=== PATIENT | female | born 1990 | race Two or more races ===

== ENCOUNTER 2024-07-01 17:18 | Emergency (ER) | payer MEDICAID, SELFPAY | END 2024-07-05 22:56 | disposition left against medical advice (07) | LOC: SERX 18:50 | PROVIDERS: Emergency Provider Emergency Medicine | DX: Z53.21 Procedure and treatment not carried out due to patient leaving prior to being seen by health care provider (principal) ==

== ENCOUNTER 2024-07-01 18:30 | Observation (INO) | payer MEDICAID, SELFPAY ==
[2024-07-01] VITALS (8 sets, daily range): BP systolic 99–159; BP diastolic 56–114; PULSE 92–126; RESP 16; TEMP 37.3; O2SAT 98; BMI 34.9
--- NOTE | 2024-07-01 18:56 | XR_ITS ---
Examination: Complete OB ultrasound greater than 14 weeks Date and time of exam: July 01, 2024 2006 hrs. Indications: Pelvic pain nausea beginning 2 days ago Findings: Viable intrauterine single fetus with single amniotic sac presentation cephalic Cardiac motion 133 BPM Placenta anterior grade 1 Umbilical cord insertion seen Amniotic fluid index 9.7 cm Cervix 5.1 cm Ovaries obscured by the uterus. Composite estimated gestational age based on BPD, head circumference, abdominal circumference, femur length is 33 weeks 1 day Estimated weight 2110 g. Survey of intracranial anatomy, spinal anatomy, abdominal anatomy, four-chamber heart performed with no abnormalities identified. Impression: Viable intrauterine gestation cephalic presentation Estimated gestational age 33 weeks 1 day.
[2024-07-01] MEDS: SODIUM CHLORIDE 0.9% 1000 ML 1,000 ML 999 ML IV (19:30)
[2024-07-01 19:58] LABS: Collection Type, Urine Clean Catch
[2024-07-01 19:59] LABS: Basophils % (Auto) 0 % (0-2.5); Eosinophils % (Auto) 0 % (0-10); Hemoglobin 11.3 g/dL (12.0-16.0); Immature Granulocytes % (Auto) 0 % (0-0); Immature Granulocytes Auto 0.02 Thou/mm3 (0.00-0.00); Lymphocytes # (Auto) 0.4 Thou/mm3 (1.0-4.8); Lymphocytes % (Auto) 5 % (10-50); Mean Corpuscular HGB Conc 35.3 g/dl (31.0-37.0); Mean Corpuscular Volume 91 fL (80-100); Monocytes # (Auto) 0.3 Thou/mm3 (0.0-0.8); Monocytes % (Auto) 4 % (0-12); Neutrophils # (Auto) 7.2 Thou/mm3 (1.8-7.7); Neutrophils % (Auto) 91 % (37-80); Nucleated Red Blood Cell % 0 /100 WBC (0); Platelet Count 207 Thou/mm3 (140-440); RDW Standard Deviation 41.1 fL (36.4-46.3); Red Blood Count 3.53 Miln/mm3 (4.00-5.20); White Blood Count 7.9 Thou/mm3 (3.6-11.0)
[2024-07-01 20:04] LABS: Bilirubin,Urine Negative (Negative); Blood,Urine Negative (Negative); Clarity,Urine Clear (Clear/Hazy); Color,Urine Yellow (Lt Yel-Yel); Glucose, Urine Negative (Negative); Ketones,Urine 3+ (Negative); Leukocyte Esterase,Urine Negative (Negative); Nitrite,Urine Negative (Negative); Protein,Urine Trace (Neg - Trace); RBC,Urine 3 /hpf (0-3); Specific Gravity,Urine 1.018 (1.001-1.035); Squamous Epithelial Cell,Urine 4 /hpf (0-5); Urobilinogen,Urine Negative mg/dL (0.0-1.0); WBC,Urine 1 /hpf (0-5)
[2024-07-01 20:17] LABS: Alanine Aminotransferase 12 U/L (10-49); Albumin, Serum 3.8 gm/dL (3.5-5.0); Albumin/Globulin Ratio 1.4 (1.2-2.2); Alkaline Phosphatase 119 U/L (46-116); Anion Gap 8 (7-16); Aspartate Amino Transferase 17 U/L (0-34); BUN/Creatinine Ratio 13 Ratio (12-20); Bilirubin,Total 0.9 mg/dL (0.3-1.2); Blood Urea Nitrogen 5 mg/dL (9-23); Calcium 9.1 mg/dL (8.3-10.6); Calcium (Corrected) 9.3 mg/dL (8.5-10.1); Carbon Dioxide 23.8 mMol/L (20.0-31.0); Chloride 104 mMol/L (98-107); Creatinine (Component) 0.4 mg/dL (0.6-1.3); Estimated Creatinine Clearance 190.6 mL/min (>60); Globulin 2.8 gm/dL (2.3-3.5); Glucose 81 mg/dL (74-106); Osmolality,Calculated 268 (275-295); Potassium 3.2 mMol/L (3.4-5.1); Sodium 136 mMol/L (136-145); Total Protein 6.6 gm/dL (5.7-8.2); eGFR > 60 See Note
[2024-07-01 20:19] LABS: Fibrinogen 446 mg/dL (175-375); Partial Thromboplastin Time 24.8 Seconds (22.0-36.0); Prothrombin Time 10.7 Seconds (9.0-12.2)
[2024-07-01] MEDS: ACETAMINOPHEN IVPB 1,000 MG/100 ML VIAL 250 MG IV (20:27)
[2024-07-01] MEDS: POTASSIUM CHLORIDE 20 mEq TABCR PO (22:38)
== END 2024-07-01 22:45 | disposition home or self-care (01) ==
PROVIDERS: Admitting Provider Student in an Organized Health Care Education/Training Program; Visit Provider Student in an Organized Health Care Education/Training Program
DX: O26.893 Other specified pregnancy related conditions, third trimester (principal); R25.2 Cramp and spasm; Z3A.33 33 weeks gestation of pregnancy
CPT/HCPCS: 36415; 59025; 59899; 76805; 80053; 81001; 85025; 85384; 85610; 85730; G0378; J0131; J7030; A9270

== ENCOUNTER 2024-08-09 05:34 | Inpatient (IN) | payer MEDICAID, SELFPAY ==
--- NOTE | 2024-08-04 11:51 | ESHP_ITS ---
RE: PAIGE PEARCE : 1990 DATE OF ADMISSION: 08/09/2024 HISTORY OF PRESENT ILLNESS: This is a 34-year-old 3, para 2-0-0-2 with due date of 08/16/2024 with intrauterine at 39 weeks on 08/09/2024, who is admitted for repeat delivery. The patient's care was complicated by chlamydia cervicitis, which was treated on 05/28/2024 and test of cure was negative. The patient has a history of syphilis. She received three weekly Bicillin injections at the [facility] in 04/2023. Her most recent RPR on 02/09/2024 was 1 to 2 and a repeat RPR on 06/06/2024 was nonreactive. An additional repeat chlamydia test on 07/24/2024 was negative. ALLERGIES: NO KNOWN DRUG ALLERGIES. MEDICATIONS: multivitamin one p.o. daily. PAST MEDICAL HISTORY: Syphilis, preeclampsia, placental abruption, delivery, chlamydia, migraine headaches. SOCIAL HISTORY: She denies any alcohol, drug use, or smoking. FAMILY HISTORY: Mother and maternal grandmother have migraine headaches. OBSTETRIC HISTORY: In 2013, 40-week normal vaginal delivery, 7 pounds 8 ounce male, home delivery. In 06/09/2023, 34-week delivery complicated by placental abruption and preeclampsia. PAST SURGICAL HISTORY: delivery in 2022. REVIEW OF SYSTEMS: She denies any chest pain, palpitations, cough, fever, or shortness of breath or lower extremity pain. She denies any headache, change in vision or right upper quadrant pain. PHYSICAL EXAMINATION: VITAL SIGNS: Blood pressure 122/64, heart rate 88, respirations 18, temperature is 98.2. HEENT: Oropharynx and sclerae are clear. LUNGS: Clear to auscultation bilaterally. HEART: Regular rate and rhythm. ABDOMEN: Old Pfannenstiel scar noted, gravid term size consistent with estimated weight, 7.5 pounds. PELVIC: Deferred. EXTREMITIES: Nontender. SKIN: No gross rashes or lesions. NEUROLOGIC: No focal deficit. ASSESSMENT AND PLAN: Intrauterine at 39 weeks on 08/09. Previous delivery, elects repeat delivery. Informed consent was obtained. The patient made aware of the risks, complications, alternatives, and benefits of the proposed procedure and she agrees. DT: 09:49:40 TT: 11:42:00 Ref: [id number] - TID: [id number] MTDD
[2024-08-08 15:29] LABS: Basophils # (Auto) 0.1 Thou/mm3 (0.0-0.2); Basophils % (Auto) 1 % (0-2.5); Eosinophils # (Auto) 0.2 Thou/mm3 (0.0-0.5); Eosinophils % (Auto) 2 % (0-10); Hemoglobin 12.2 g/dL (12.0-16.0); Immature Granulocytes % (Auto) 0 % (0-0); Immature Granulocytes Auto 0.02 Thou/mm3 (0.00-0.00); Lymphocytes # (Auto) 0.5 Thou/mm3 (1.0-4.8); Lymphocytes % (Auto) 7 % (10-50); Mean Corpuscular HGB Conc 34.9 g/dl (31.0-37.0); Mean Corpuscular Hemoglobin 31.7 pg (25.0-35.0); Mean Corpuscular Volume 91 fL (80-100); Monocytes # (Auto) 0.6 Thou/mm3 (0.0-0.8); Monocytes % (Auto) 7 % (0-12); Neutrophils # (Auto) 6.7 Thou/mm3 (1.8-7.7); Neutrophils % (Auto) 83 % (37-80); Nucleated Red Blood Cell % 0 /100 WBC (0); Platelet Count 240 Thou/mm3 (140-440); Red Blood Count 3.85 Miln/mm3 (4.00-5.20)
[2024-08-08 15:45] LABS: Alanine Aminotransferase 11 U/L (10-49); Albumin/Globulin Ratio 1.4 (1.2-2.2); Alkaline Phosphatase 164 U/L (46-116); Anion Gap 7 (7-16); Aspartate Amino Transferase 14 U/L (0-34); BUN/Creatinine Ratio 14 Ratio (12-20); Bilirubin,Total 0.9 mg/dL (0.3-1.2); Blood Urea Nitrogen 7 mg/dL (9-23); Calcium 9.2 mg/dL (8.3-10.6); Calcium (Corrected) 9.2 mg/dL (8.5-10.1); Carbon Dioxide 25.9 mMol/L (20.0-31.0); Chloride 102 mMol/L (98-107); Creatinine (Component) 0.5 mg/dL (0.6-1.3); Globulin 2.8 gm/dL (2.3-3.5); Glucose 72 mg/dL (74-106); Osmolality,Calculated 267 (275-295); Potassium 3.7 mMol/L (3.4-5.1); Sodium 135 mMol/L (136-145); Total Protein 6.8 gm/dL (5.7-8.2); eGFR > 60 See Note
[2024-08-08 16:06] LABS: Syphilis Reactive (Nonreactive)
[2024-08-08 16:07] LABS: INR 0.9 (0.9-1.3); MHATP/TP-PA* See Sep Rpt; Partial Thromboplastin Time 25.3 Seconds (22.0-36.0); Prothrombin Time 10.1 Seconds (9.0-12.2)
[2024-08-09] VITALS (55 sets, daily range): BP systolic 0–125; BP diastolic 0–73; PULSE 60–111; RESP 14–20; TEMP 36.4–36.7; O2SAT 82–100; BMI 35.1
[2024-08-09 06:16] LABS: Basophils % (Auto) 0 % (0-2.5); Eosinophils # (Auto) 0.2 Thou/mm3 (0.0-0.5); Eosinophils % (Auto) 3 % (0-10); Hematocrit 34.6 % (36.0-46.0); Hemoglobin 12.4 g/dL (12.0-16.0); Immature Granulocytes % (Auto) 0 % (0-0); Immature Granulocytes Auto 0.01 Thou/mm3 (0.00-0.00); Lymphocytes # (Auto) 0.5 Thou/mm3 (1.0-4.8); Lymphocytes % (Auto) 8 % (10-50); Mean Corpuscular HGB Conc 35.8 g/dl (31.0-37.0); Mean Corpuscular Hemoglobin 31.9 pg (25.0-35.0); Mean Corpuscular Volume 89 fL (80-100); Monocytes # (Auto) 0.4 Thou/mm3 (0.0-0.8); Monocytes % (Auto) 6 % (0-12); Neutrophils # (Auto) 5.6 Thou/mm3 (1.8-7.7); Neutrophils % (Auto) 84 % (37-80); Nucleated Red Blood Cell % 0 /100 WBC (0); Platelet Count 242 Thou/mm3 (140-440); Red Blood Count 3.89 Miln/mm3 (4.00-5.20); White Blood Count 6.7 Thou/mm3 (3.6-11.0)
[2024-08-09] MEDS: RINGERS LACTATED 1000 ML 1,000 ML 500 ML IV ×2 (06:38→07:05)
[2024-08-09 06:55] LABS: Syphilis Reactive (Nonreactive)
[2024-08-09] MEDS: ceFAZolin/D5W 2 GM IV 2 GM/100 ML BAG IV (08:58)
[2024-08-09] MEDS: FAMOTIDINE INJ 10 MG/ML VIAL 2 ML 20 MG IV (08:59)
[2024-08-09] MEDS: CITRIC ACID/SODIUM CITR 15 ML UDC (BICITRA) 30 ML PO (08:59)
--- NOTE | 2024-08-09 10:37 | PD.LDDS ---
DS: Providers Provider Date of admission: 08/09/24 05:34 Primary care physician: Alicia Rivera PA-C Admitting Provider: Wilton Parker MD Attending Provider on Admission: Wilton Parker MD Attending Provider on DC: Wilton Parker MD Discharging Provider: Wilton Parker MD DS: Diagnosis Discharge Diagnosis (1) delivery delivered: Status: Acute (2) Endometriosis: Status: Acute Problem List Completed Was Problem List Reviewed/Reconciled?: Yes Summary/Hosp Course Peripartum Data Procedures: Procedures Operation Date: 08/09/24 10:45 Actual Procedure Side Surgeon p in OB Not Applicable Wilton Parker MD Time Spent with Patient Time attestation: Total time spent providing and/or coordinating discharge services: Exam Vital Signs Temp Pulse Resp BP Pulse Ox 98.1 F 88 17 109/66 96 08/09/24 05:55 08/09/24 07:27 08/09/24 05:55 08/09/24 07:27 08/09/24 08:57 Discharge Plan Plan Patient Disposition: HOME (Self Care) Patient condition on transfer: Stable Prescriptions/Referrals Prescriptions/Med Rec: New hydrocodone-acetaminophen 5-325 mg tablet 1 tab PO Q6H MDD 4 PRN (Reason: pain) Qty: 20 0RF Continued PNV [id number] fumarate-FA [] 28 mg iron- 800 mcg Tablet 1 tab PO QDAY Referrals: Alicia Rivera PA-C [Primary Care Provider] - Patient/Caregiver Discharge Instructions Discharge Activity: activity as tolerated Other Discharge Activity Instructions:: Follow up office 1 weeks. Education Materials: C Section Dc Print Language: Telugu Stand Alone Forms: Taylor Award Info., Patient Portal Info Letter Discharge Order Discharge Orders: Discharge (Routine); Ordered 08/12/24 Ordered By: Wilton Parker Planned Discharge Date 08/11/24
--- NOTE | 2024-08-09 10:38 | PD.LDDELS ---
Data (Christensen) Data Hx Section: No : 3 Para: 2 Term: 2 : 1 : 0 Delivery Data (Christensen) Labor Data ROM Date: 08/09/24 ROM Time: 09:57 Rupture Type: AROM Amniotic Fluid: Clear Delivery Data EDC: 08/16/24 EDC calculated by:: LMP/early US confirmation Labor Onset Stage 1 Date: 08/09/24 Labor Onset Stage 1 Time: 09:57 Labor Onset Stage 2 Date: 08/09/24 Labor Onset Stage 2 Time: 09:57 Delivery Date: 08/09/24 Delivery Time: 09:57 Gestational age (weeks): 39 Gestational age (days): 0 Placenta Delivery Date: 08/09/24 Placenta Delivery Time: 09:58 Delivered by: Wilton Parker Delivery nurse: Shelli Gómez Other staff at delivery: Nursery Nurse Other staff at delivery: Biological Photographer Other staff at delivery: RT Other staff at delivery: Scrub Other staff at delivery: Lani Pedro Other staff at delivery: Joanne Ravi Other staff at delivery: ALLY Other staff at delivery: MARLA Delivery Method Delivery: Delivery Type: Repeat Presentation: Vertex Position: OP Anesthesia Type Primary Anesthesia: Spinal Placenta Placenta Delivery: Manual Placenta Cultures Obtained: No Placenta Sent for Examination: No Cord Sample: Cord Blood Obtained EBL Estimated blood loss (ml): 500 Umbilical Cord Nuchal Cord: x1 Additional Procedures None Complications Complications: None [place] Data (Christensen) Data Gender: Male Infant Weight Grams: 3165 1 Minute Total: 9 5 Minute Total: 9
[2024-08-09] MEDS: KETOROLAC INJ 30 MG/ML VIAL IVP ×2 (11:27→22:49)
[2024-08-09] MEDS: ACETAMINOPHEN 325 MG TABLET 650 MG PO (12:38)
[2024-08-09 16:26] LABS: Basophils % (Auto) 0 % (0-2.5); Eosinophils % (Auto) 0 % (0-10); Hemoglobin 12.3 g/dL (12.0-16.0); Immature Granulocytes % (Auto) 0 % (0-0); Immature Granulocytes Auto 0.02 Thou/mm3 (0.00-0.00); Lymphocytes # (Auto) 0.3 Thou/mm3 (1.0-4.8); Lymphocytes % (Auto) 3 % (10-50); Mean Corpuscular HGB Conc 35.1 g/dl (31.0-37.0); Mean Corpuscular Hemoglobin 32.1 pg (25.0-35.0); Mean Corpuscular Volume 91 fL (80-100); Monocytes # (Auto) 0.3 Thou/mm3 (0.0-0.8); Monocytes % (Auto) 3 % (0-12); Neutrophils # (Auto) 9.1 Thou/mm3 (1.8-7.7); Neutrophils % (Auto) 94 % (37-80); Nucleated Red Blood Cell % 0 /100 WBC (0); Platelet Count 229 Thou/mm3 (140-440); RDW Standard Deviation 41.9 fL (36.4-46.3); Red Blood Count 3.83 Miln/mm3 (4.00-5.20); White Blood Count 9.7 Thou/mm3 (3.6-11.0)
[2024-08-09] MEDS: Milk Of Magnesia Susp 30 ML UDC PO (22:50)
[2024-08-09] MEDS: SIMETHICONE 80 MG CHEW PO (22:50)
--- NOTE | 2024-08-10 03:19 | ESPR_ITS ---
Subjective Subjective Interval history: Patient denies any problem or complaint. She is voiding, ambulating, tolerating a regular diet. She denies any chest pain, palpitations, shortness of breath or lower extremity pain. She denies any excessive vaginal bleeding. She she denies any dizziness or lightheadedness. Exam Vital Signs Temp Pulse Resp BP Pulse Ox O2 Del Method 97.7 F 86 16 112/58 L 97 Room Air 08/09/24 21:20 08/09/24 21:20 08/09/24 21:20 08/09/24 21:20 08/09/24 21:20 08/09/24 21:20 Routine Respiratory Exam Comments: Clear to yeah auscultation bilaterally Routine Cardiovascular Exam Comments: Regular rate and rhythm Routine Abdominal Exam Comments: Fundus is firm dressing dry and intact Routine Extremities Exam Comments: No edema or tenderness Objective Labs 08/09/24 15:36 08/08/24 14:55 Labs: Laboratory Results - last 24 hr 08/09/24 08/09/24 06:00 15:36 WBC 6.7 9.7 D RBC 3.89 L 3.83 L Hgb 12.4 12.3 Hct 34.6 L 35.0 L MCV 89 91 MCH 31.9 32.1 MCHC 35.8 35.1 RDW Std Deviation 41.0 41.9 Plt Count 242 229 Neut % (Auto) 84 H 94 H Lymph % (Auto) 8 L 3 L [place] % (Auto) 6 3 Eos % (Auto) 3 0 Baso % (Auto) 0 0 Neut # (Auto) 5.6 9.1 H Lymph # (Auto) 0.5 L 0.3 L [place] # (Auto) 0.4 0.3 Eos # (Auto) 0.2 0.0 Baso # (Auto) 0.0 0.0 Immature Gran # (Auto) 0.01 H 0.02 H Absolute Nucleated RBC 0.00 0.00 Immature Gran % 0 0 Nucleated RBC % 0 0 Syphilis Serology Reactive A T.pallidum Ab (MHA) Cancelled Blood Type B Positive Antibody Screen NEGATIVE Crossmatch See Detail Blood Bank Wristband ID Yes Assessment & Plan Problem List (1) delivery delivered: Status: Acute Assessment and plan: DC IV encourage ambulation remove dressing support Possible discharge home tomorrow (2) Endometriosis: Status: Acute Time Spent With Patient Time: Total time spent is greater than 50% in coordination of care (as documented) at patient's floor/unit and/or counseling patient:
[2024-08-10 05:20] VITALS: BP 108/68; PULSE 84; RESP 16; TEMP 36.8; O2SAT 94
--- NOTE | 2024-08-10 07:40 | ESOP_ITS ---
RE: PAIGE PEARCE : 1990 DATE OF OPERATION: 08/09/2024 PREOPERATIVE DIAGNOSES: 1. Intrauterine at 39 weeks. 2. Previous delivery, elects repeat delivery. POSTOPERATIVE DIAGNOSES: 1. Intrauterine at 39 weeks. 2. Previous delivery, elects repeat delivery. 3. Endometriosis, stage I. PROCEDURE PERFORMED: Repeat delivery via low transverse uterine incision and Pfannenstiel skin incision. SURGEON: Wilton Parker DO CHANNEL LIP WETTER: ANTHONY Goldstein ANESTHESIA: Spinal. ANESTHESIOLOGIST: Aristeo Man CRNA ESTIMATED BLOOD LOSS: 500 mL. COMPLICATIONS: None. COUNTS: Correct. PATHOLOGY: None. FINDINGS: A live male , cephalic presentation, nuchal cord, clear amniotic fluid. Apgars, see RN notes. Placenta removed completely intact. Uterus, ovaries, and fallopian tubes grossly within normal limits. Endometriotic implants in the posterior uterosacral ligaments. DESCRIPTION OF PROCEDURE: After proper informed consent was obtained and the patient was made aware of the risks, complications, alternatives, and benefits of the proposed procedure, she was taken to the operating room where she underwent induction of spinal anesthesia. She was prepped and draped in the usual sterile fashion in the dorsal supine position. A timeout was performed. A Pfannenstiel skin incision was made with scalpel and carried through to the underlying layer of fascia with the Bovie. The fascia was nicked in the midline. Incision extended bilaterally with the Bovie. The inferior aspect of the fascia incision was grasped with Reynaldo clamps and elevated. The underlying rectus muscle was dissected off with the Bovie. The rectus muscles were in the midline. The peritoneum identified between 2 Sol clamps and entered sharply with Metzenbaum scissors. The incision was extended superiorly and inferiorly with good visualization of the bladder. The bladder blade was inserted. Vesicouterine peritoneum was incised transversely and bladder flap created digitally. Bladder blades were reinserted. The lower uterine segment was incised in a transverse fashion with the scalpel. The incision was extended bilaterally digitally. The infant's head delivered. The mouth and nose suctioned with bulb suction. Shoulder and body delivered atraumatically. Nuchal cord was reduced prior to shoulder delivery and the mouth and nose suctioned with bulb suction. Cord was clamped and cut. The infant sent off to the awaiting pediatric staff. Cord blood was sent. The placenta was then removed manually. The uterus exteriorized and cleared of all clots and debris and uterine incision was repaired with #1-0 chromic catgut suture in running locking fashion. The second layer of the same suture was used to imbricate the first layer and obtained excellent hemostasis. The vesicouterine peritoneum was closed with 2-0 chromic catgut suture in running fashion. The uterus was returned to the abdomen. The gut was cleared of all clots and debris. Intercede was placed over the lower uterine segment to prevent adhesion formation and peritoneum closed with 0 chromic catgut suture in running fashion. The muscle was closed with 0 chromic catgut suture in running fashion. The fascia was closed with 0 Vicryl beginning at each angle and ending at center in running fashion. Subcutaneous tissue was irrigated with normal saline solution and found to be hemostatic and closed with 2-0 chromic catgut suture in running fashion. The skin was closed with 4-0 Monocryl. A Dermabond Prineo dressing was applied. A sterile pressure dressing was applied. She tolerated the procedure well. Counts were correct. I discussed with the patient the nature of her condition, intraoperative findings, and expectation for recovery. All questions answered. DT: 10:36:32 TT: 16:40:00 Ref: [id number] - TID: [id number]
[2024-08-10 08:00] VITALS: BP 113/74; PULSE 73; RESP 18; TEMP 36.5; O2SAT 98
[2024-08-10] MEDS: HYDROcodone/APAP 5/325 TABLET 1 TAB PO ×2 (08:00→16:25)
[2024-08-10] MEDS: KETOROLAC INJ 30 MG/ML VIAL IVP (08:02)
[2024-08-10] MEDS: SIMETHICONE 80 MG CHEW PO (08:39)
[2024-08-10] MEDS: DOCUSATE SOD 100 MG CAPSULE PO (08:39)
[2024-08-10 11:15] VITALS: BP 105/70; PULSE 73; RESP 18; TEMP 36.7; O2SAT 96
[2024-08-10 16:23] VITALS: TEMP 36.8
[2024-08-10] MEDS: IBUPROFEN TAB 400 MG TABLET 800 MG PO (16:23)
[2024-08-10 19:50] VITALS: BP 110/64; PULSE 85; RESP 17; TEMP 37.1; O2SAT 97
[2024-08-11] MEDS: HYDROcodone/APAP 5/325 TABLET 2 TAB PO (01:57)
[2024-08-11 03:41] VITALS: BP 116/78; PULSE 84; RESP 18; TEMP 37.1; O2SAT 96
[2024-08-11 08:15] VITALS: BP 122/75; PULSE 77; RESP 18; TEMP 36.6; O2SAT 98
[2024-08-11] MEDS: IBUPROFEN TAB 400 MG TABLET 800 MG PO (08:46)
--- NOTE | 2024-08-11 10:24 | ESPR_ITS ---
RE: PAIGE PEARCE : 1990 DATE OF SERVICE: 08/11/2024 SUBJECTIVE: Postop day #2, the patient reports right lower quadrant pain that required two [place] when she woke up this morning. She denies any nausea or vomiting. She is tolerating a regular diet. She is passing flatus. She is voiding without difficulty. She denies any excessive vaginal bleeding. She denies any dizziness or lightheadedness. She denies any chest pain, palpitations, shortness of breath or lower extremity pain. OBJECTIVE: Vital Signs: Blood pressure 122/75, heart rate 77, respirations 18, temperature 97.9, pulse oximetry is 98% on room air. Lungs: Clear to auscultation bilaterally. Heart: Regular rate and rhythm. Abdomen: Bilateral incisional tenderness. Incision is clear and intact. Extremities: Nontender. ASSESSMENT: Postop day #2 status post delivery, postoperative pain requiring significant amounts of oral opiate analgesia. PLAN: Continue to monitor throughout the day. Possible discharge later today or tomorrow depending on the need for inpatient pain management. DT: 08:33:44 TT: 10:04:00 Ref: [id number] - TID: [id number]
[2024-08-11] MEDS: Milk Of Magnesia Susp 30 ML UDC PO (10:59)
[2024-08-11] MEDS: HYDROcodone/APAP 5/325 TABLET 1 TAB PO (15:43)
[2024-08-11 15:50] VITALS: BP 118/74; PULSE 80; RESP 17; TEMP 36.7; O2SAT 97
[2024-08-11] MEDS: DOCUSATE SOD 100 MG CAPSULE PO (15:57)
[2024-08-11] MEDS: SIMETHICONE 80 MG CHEW PO (15:57)
[2024-08-11 19:55] VITALS: BP 130/68; PULSE 76; RESP 15; TEMP 36.4; O2SAT 98
[2024-08-12] MEDS: HYDROcodone/APAP 5/325 TABLET 2 TAB PO
[2024-08-12 04:03] VITALS: BP 113/75; PULSE 81; RESP 16; TEMP 36.8; O2SAT 97
[2024-08-12] MEDS: Milk Of Magnesia Susp 30 ML UDC PO (08:13)
[2024-08-12] MEDS: DOCUSATE SOD 100 MG CAPSULE PO (08:14)
[2024-08-12] MEDS: HYDROcodone/APAP 5/325 TABLET 1 TAB PO (08:14)
[2024-08-12] MEDS: SIMETHICONE 80 MG CHEW PO (08:14)
[2024-08-12 08:19] VITALS: BP 116/67; PULSE 63; RESP 16; TEMP 36.7; O2SAT 97
--- NOTE | 2024-08-12 10:18 | ESPR_ITS ---
RE: PAIGE PEARCE : 1990 DATE OF SERVICE: 08/12/2024 S: Postop day #3, the patient denies any problem or complaint. She is voiding. She is ambulating. She tolerated diet. She is passing flatus. She denies any excessive vaginal bleeding. She denies any dizziness or lightheadedness. She denies any chest pain, palpitations, shortness of breath or lower extremity pain. O: Vital Signs: Blood pressure is 116/67, heart rate 63, respirations 16, temperature 98.1, and pulse ox is 97% on room air. Lungs: Clear to auscultation bilaterally. Heart: Regular rate and rhythm. Abdomen: Incision clear and intact. Fundus is firm. Lochia is scant. Extremities: Nontender. A: Postop day #3, status post delivery. P: Discharge home. Discharge instructions given. Follow up in the office in six weeks. DT: 09:33:52 TT: 10:16:00 Ref: [id number] - TID: [id number]
== END 2024-08-12 11:59 | disposition home or self-care (01) | DRG 540 ==
LOC: S4SX 08:14 → S4NX 10:02
PROVIDERS: Admitting Provider Specialist; PCP Physician Assistant; Visit Provider Specialist
PROC: 10D00Z1 Extraction of Products of Conception, Low, Open Approach (ICD-10-PCS; CPT 59514; principal; 2024-08-09 09:00)
DX: O34.211 Maternal care for low transverse scar from previous cesarean delivery (principal); Z3A.39 39 weeks gestation of pregnancy; Z37.0 Single live birth; O69.81X0 Labor and delivery complicated by cord around neck, without compression, not applicable or unspecified; O34.83 Maternal care for other abnormalities of pelvic organs, third trimester; N80.3C9 Endometriosis of the uterosacral ligament(s), unspecified side, unspecified depth; O98.12 Syphilis complicating childbirth; A51.5 Early syphilis, latent
CPT/HCPCS: 36415; 80053; 85025; 85610; 85730; 86780; 86850; 86900; 86901; 86923; A4649; C1765; J0689; J1100; J1885; J2274; J2371; J2405; J2590; J3490; J7120; A9270; J0690; J2270

== ENCOUNTER 2024-08-22 23:56 | Inpatient (IN) | payer MEDICAID, SELFPAY ==
[2024-08-22 23:56] VITALS: BMI 33.4
[2024-08-23] VITALS (17 sets, daily range): BP systolic 94–130; BP diastolic 50–81; PULSE 54–108; RESP 15–96; TEMP 36.1–37.1; O2SAT 92–98; BMI 35.0
--- NOTE | 2024-08-23 01:10 | XR_ITS ---
Examination: CT abdomen with intravenous contrast CT pelvis with intravenous contrast 2-D coronal reconstructions 2-D sagittal reconstructions Date and time of exam: August 23, 2024 0311 hrs. Comparison October 05, 2022 Indications: Status post August 09, 2024 with purulent discharge at the incision site today CTDI: vol (mGy) 9.27 DLP: (mGycm) 562 Technique: Multiple axial sections of the abdomen and pelvis have been obtained. 64 slice high-resolution scanner used. 3 mm axial sections have been obtained, post intravenous injection 60 cc [id number] 2-D sagittal, coronal reconstructions obtained. Low dose protocols were performed. One or more of the following dose reduction techniques were used; automated exposure control, adjustment of the mA and/or KV according to patient size, use of iterative reconstruction technique. Findings: No focal liver or splenic lesions Mildly distended gallbladder No pancreatic or adrenal mass No renal or ureteral calculi, no hydronephrosis Aorta normal size No bowel obstruction No pericecal inflammatory change Bilateral partially fluid containing collections in the rectus muscles lower abdomen, mediolateral dimension 16 cm AP dimension up to 4 cm in cephalocaudad dimension up to 8 cm with cellulitis in the subcutaneous fatty tissue anterior pelvis Lower pelvis shows more superficial fluid collection in the subcutaneous fatty tissue on the left axial image 171 measuring 5.6 cm in transverse dimension and 1.8 cm in AP dimension uterus Bladder intact Impression: Abscess collections in the lower rectus abdominal musculature bilaterally as above
--- NOTE | 2024-08-23 01:11 | PD.EDRME ---
Rapid Medical Screening Exam [facility] Arrival date/time: 08/22/24 23:56 34F with 1 week of worsening area pain and 1 day of purulent discharge after on 08/09. Chief Complaint: General Adult/Misc Complain Time Seen by Provider: 08/23/24 01:29 Vital signs: Vital Signs Temperature 98.8 F 08/23/24 00:40 Pulse Rate 108 H 08/23/24 00:40 Respiratory Rate 18 08/23/24 00:40 Blood Pressure 103/70 08/23/24 00:40 Pulse Oximetry (%) 95 08/23/24 00:40 Oxygen Delivery Method Room Air 08/23/24 00:40
--- NOTE | 2024-08-23 01:29 | EDNOTE_ITS ---
ED Skin Abcess FB-RME/HPI General Chief complaint: General Adult/Misc Complain Stated complaint: 08/09 WOUND HAS PUS Time Seen by Provider: 08/23/24 01:29 Arrival date/time: 08/22/24 23:56 34F with history of endometriosis presents to ED with 1 week of worsening C- section area pain and 1 day of purulent discharge after on 08/09. Limitations: no limitations Related Data Home Medications ?Medication ?Instructions ?Recorded ?Confirmed vit no.95-ferrous 1 tab PO QDAY 05/09/23 08/09/24 fumarate 28 mg-folic acid 800 mcg tablet () Previous Rx's ?Medication ?Instructions ?Recorded hydrocodone 5 mg-acetaminophen 325 1 tab PO Q6H PRN pain #20 tabs 08/12/24 mg tablet Allergies Allergy/AdvReac Type Severity Reaction Status Date / Time No Known Allergies Allergy Verified 08/09/24 06:26 Review of Systems Review of Systems Systems Reviewed: All systems reviewed, normal except as documented Constitutional Constitutional: Reports system reviewed and no additional complaints, except as documented, Denies fever(s) and Denies headache(s) ENT Ears, Nose, Mouth, and Throat: Denies disequilibrium and Denies headache(s) Cardiovascular Cardiovascular: Reports system reviewed and no additional complaints, except as documented, Denies chest pain and Denies dyspnea Respiratory Respiratory: Reports system reviewed and no additional complaints, except as documented, Denies cough and Denies dyspnea Gastrointestinal Gastrointestinal: Reports system reviewed and no additional complaints, except as documented, Denies abdominal pain, Denies nausea and Denies vomiting Integumentary/Breasts Skin/Breast: Reports as per HPI and Reports skin pain Neurologic Neurologic: Reports system reviewed and no additional complaints, except as documented, Denies confusion, Denies disequilibrium and Denies headache(s) Psychiatric Psychiatric: Denies confusion Past Medical History Past Medical History NEUROLOGIC: Negative Neurological Disorders or Seizures CARDIAC: Negative Cardiac Disorders or Congestive Heart Failure RESPIRATORY: Negative Chronic Obstructive Pulmonary Disease (COPD) or Asthma GASTROINTESTINAL: Negative Gastrointestinal Disorders GENITOURINARY: Negative Genitourinary Disorders or Renal Disease REPRODUCTIVE: Positive Gonorrhea (2022- treated) and Syphilis (2022- treated) MUSCULOSKELETAL: Negative Musculoskeletal Disorders ENDOCRINE: Negative Endocrine Disorders, Diabetes Mellitus Type 1 or Diabetes Mellitus Type 2 HEMATOLOGIC: Negative Blood Disorders, Anemia or Sickle Cell Disease PSYCHO/SOCIAL: Negative Depression, Anxiety or Depression OTHER HISTORY: Negative Falls, Blood Transfusions, Blood Transfusion Reaction or Anesthesia Reactions Family History FAMILY HISTORY: Negative Family Psychiatric Problems, Family Respiratory Disorders, Family Cardiac Disorders or Family Gastrointestinal Problems Surgical History SURGICAL: Negative Section Social History SMOKING STATUS: Never smoker ED Exam General Limitations: Present no limitations General appearance: Present alert and in no apparent distress Head Head exam: Present atraumatic Eye Eye exam: Present normal appearance, PERRL and EOMI ENT ENT exam: Present normal exam, normal oropharynx and mucous membranes moist Neck Neck exam: Present normal inspection, full ROM and trachea midline Chest Chest inspection: Present normal inspection and symmetric chest wall rise Respiratory Respiratory exam: Present normal lung sounds bilaterally Cardiovascular Cardiovascular exam: Present regular rate, normal rhythm and normal heart sounds Abdominal Exam Abdominal exam: Present soft, normal bowel sounds and other ( wound discharge and redness of skin) Extremities Exam Extremities exam: Present normal inspection and full ROM Back Exam Back exam: Present normal inspection and full ROM Neurological Exam Neurological exam: Present alert, oriented X3 and CN II-XII intact Psychiatric Psychiatric exam: Present normal affect and normal mood Skin Skin exam: Present warm, dry, intact and normal color Course Quality Measures none Orders Category Date Time Status Admit to Inpatient Status Routine Admission 08/23/24 05:19 Active condition [Patient Condition] Routine Admission 08/23/24 Ordered COVID-19 Screening Questionnaire NOW Care 08/23/24 04:[address] Screening NOW Care 08/23/24 01:11 Active Consent [Obtain Written Consent For:] .NOW Care 08/23/24 05:21 Active Decision to Admit X1 Care 08/23/24 04:28 Active Insert IV NOW Care 08/23/24 01:10 Active Consult to Obstetrics Stat Cons 08/23/24 01:[address] abdomen pelvis w con Stat Exams 08/23/24 01:10 Taken Blood Culture (Lab) Stat Lab 08/23/24 01:29 Received CBC Stat Lab 08/23/24 01:29 Completed CMP [Comprehensive Metabolic Panel] Stat Lab 08/23/24 01:29 Completed Lactate (Lactic Acid) Stat Lab 08/23/24 01:29 Completed Procalcitonin Stat Lab 08/23/24 01:29 Completed Ampicillin/Sulbac Inj [Unasyn Inj] 3 gm Med 08/23/24 01:30 Discontinued Sodium Chloride 0.9% (P) [NS 0.9% mini bag] 100 ml IV X1 Piper/Tazo Inj [Zosyn Inj] 3.375 gm Med 08/23/24 05:37 Ordered Sodium Chloride 0.9% [Ns] 100 ml IV Q6HR Sodium Chloride 0.9% 1000 ml [Ns] 1,000 ml Med 08/23/24 03:03 Discontinued IV 500 mls/hr Vancomycin Pharmacy to Dose Med 08/23/24 09:00 Ordered 1 each IV QDAY Code Status Routine Oth 08/23/24 05:20 Ordered Vital Signs Vital signs: Vital Signs Temperature 98.8 F 08/23/24 00:40 Pulse Rate 108 H 08/23/24 00:40 Respiratory Rate 18 08/23/24 00:40 Blood Pressure 103/70 08/23/24 00:40 Pulse Oximetry (%) 95 08/23/24 00:40 Oxygen Delivery Method Room Air 08/23/24 00:40 O2 at 95% on RA and WNLs Skin / Abscess / Foreign Body MDM Narrative MDM Narrative:: 34F with history of endometriosis presents to ED with 1 week of worsening C- section area pain and 1 day of purulent discharge after on 08/09. Physical exam with procurement internship reveals copious yellow and thick discharge from C- section wound. Some redness and tenderness of skin in area. Patient is afebrile, calm, and alert. Spoke to Dr. Parker, who did initial surgery, who states he will admit her but to proceed with the blood work and CT. He wants her given Unasyn to start off pending diagnostic results. CT reveals 16 x 4 x 8 cm abscess in ab wall musculature with overlying cellulitis. Moderate leukocytosis. Procal/lactate normal. CMP unremarkable. Patient admitted upstairs. Patient data External records reviewed:: [facility] previous records Clinical information provided by:: patient Social determinants that could affect healthcare access:: none Patient has the following chronic illnesses:: none How is presenting disease/condition affected by chronic disease/condition?: no chronic disease Evaluation data The following diagnostics were reviewed and interpreted by me:: lab results and radiology exam(s) Lab and/or radiology exams considered but not ordered:: ordered Interpretation Summary: above Medications / Prescriptions Medications or Prescriptions considered but not ordered:: ordered Medication administrations:: Medication Administration History Piperacillin Sod/Tazobactam (Sod 3.375 gm/ Sodium Chloride) 100 mls @ 200 mls/hr IV Q6HR [facility] Stop: 08/30/24 05:36 Pharmacy Consult (Vancomycin Pharmacy To Dose 1 Each Each) 1 each IV QDAY [facility] Stop: 09/22/24 08:59 Discontinued Medications Ampicillin Sodium/Sulbactam (Sodium 3 gm/ Sodium Chloride) 100 mls @ 200 mls/hr IV X1 ONE Stop: 08/23/24 01:31 Last Infusion: 08/23/24 03:52 Dose: Infused Documented By: Admin: 08/23/24 02:57 Dose: 200 mls/hr Documented By: KAMARI Sodium Chloride (Ns) 1,000 mls @ 500 mls/hr IV .Q2H ONE Stop: 08/23/24 05:02 Last Admin: 08/23/24 03:52 Dose: 500 mls/hr Documented By: above Consultations Consultation(s) initiated? (list below): Yes Diagnosis Skin/Abscess Differential Diagnosis: abscess of skin or subcutaneous tissue, viral exanthem, dermatophytosis, urticaria, herpes zoster, allergic reaction to drug, cellulitis, eczema, insect bites, impetigo, contact dermatitis and other (ab wall abscess) Most likely diagnosis given after review of the tests above:: ab wall abscess Admission Indicated Admission indicated?: indicated Admission Request Was there a request for admission?: Yes Admission Attestation Admission request attestation: Discussed case with [] from Hospitalist service regarding admission. Discussed patients ED course, exam findings, labs, and radiology results. The Hospitalist [agrees,declines] to accept the patient for admission. Disposition Plan Disposition Plan: Admit Discharge Plan Plan Patient Disposition: Admit Acute Care w/in Hospital Prescriptions/Referrals Prescriptions/Med Rec: No Action PNV cmb#95-ferrous fumarate-FA [] 28 mg iron- 800 mcg Tablet 1 tab PO QDAY hydrocodone-acetaminophen 5-325 mg tablet 1 tab PO Q6H MDD 4 PRN (Reason: pain) Qty: 20 0RF Referrals: Temporary Provider,ED [Primary Care Provider] - In 1 week Problem List Clinical Impression: Abdominal wall abscess at site of surgical wound Patient/Caregiver Discharge Instructions Print Language: Indian Stand Alone Forms: Taylor Award Info., Patient Portal Info Letter
[2024-08-23 01:51] LABS: Lactate (Lactic Acid) 0.9 mMol/L (0.4-2.0)
[2024-08-23 02:05] LABS: Basophils # (Auto) 0.1 Thou/mm3 (0.0-0.2); Basophils % (Auto) 1 % (0-2.5); Eosinophils % (Auto) 0 % (0-10); Hematocrit 32.5 % (36.0-46.0); Hemoglobin 11.1 g/dL (12.0-16.0); Immature Granulocytes % (Auto) 1 % (0-0); Immature Granulocytes Auto 0.14 Thou/mm3 (0.00-0.00); Lymphocytes # (Auto) 1.4 Thou/mm3 (1.0-4.8); Lymphocytes % (Auto) 10 % (10-50); Mean Corpuscular HGB Conc 34.2 g/dl (31.0-37.0); Mean Corpuscular Hemoglobin 31.3 pg (25.0-35.0); Mean Corpuscular Volume 92 fL (80-100); Monocytes # (Auto) 1.4 Thou/mm3 (0.0-0.8); Monocytes % (Auto) 10 % (0-12); Neutrophils # (Auto) 11.8 Thou/mm3 (1.8-7.7); Neutrophils % (Auto) 79 % (37-80); Nucleated Red Blood Cell % 0 /100 WBC (0); Platelet Count 423 Thou/mm3 (140-440); RDW Standard Deviation 41.7 fL (36.4-46.3); Red Blood Count 3.55 Miln/mm3 (4.00-5.20); White Blood Count 14.9 Thou/mm3 (3.6-11.0)
[2024-08-23] MEDS: AMPICILLIN/SULBAC INJ 3 GM in SODIUM CHLORIDE 0.9% (P) 100 ML IV (02:57)
[2024-08-23 03:16] LABS: Albumin, Serum 4.4 gm/dL (3.5-5.0); Albumin/Globulin Ratio 1.6 (1.2-2.2); Alkaline Phosphatase 178 U/L (46-116); Anion Gap 11 (7-16); Aspartate Amino Transferase 11 U/L (0-34); BUN/Creatinine Ratio 10 Ratio (12-20); Bilirubin,Total 0.8 mg/dL (0.3-1.2); Blood Urea Nitrogen 6 mg/dL (9-23); Calcium 9.2 mg/dL (8.3-10.6); Calcium (Corrected) 9.2 mg/dL (8.5-10.1); Carbon Dioxide 25.3 mMol/L (20.0-31.0); Chloride 100 mMol/L (98-107); Creatinine (Component) 0.6 mg/dL (0.6-1.3); Estimated Creatinine Clearance 123.9 mL/min (>60); Globulin 2.8 gm/dL (2.3-3.5); Glucose 95 mg/dL (74-106); Osmolality,Calculated 269 (275-295); Potassium 3.5 mMol/L (3.4-5.1); Procalcitonin 0.15 ng/ml (0.0-0.49); Sodium 136 mMol/L (136-145); Total Protein 7.2 gm/dL (5.7-8.2); eGFR > 60 See Note
[2024-08-23 03:23] LABS: Alanine Aminotransferase 8 U/L (10-49)
[2024-08-23] MEDS: SODIUM CHLORIDE 0.9% 1000 ML 1,000 ML 500 ML IV (03:52)
--- NOTE | 2024-08-23 04:23 | PRELIM_ITS ---
CT scan of the abdomen and pelvis with intravenous contrast (axial sections with sagittal and coronal reformats). August 23, 2024 at 0311 hours Clinical History: Copious pus from wound.Stephan rison: No prior study is available for comparison. Findings:The liver, gallbladder, spleen, pancreas, adrenals and kidneys are unremarkable. Urinary bladder is of normal partially filled configuration. There is appearance of the uterus. There is underdistention of the stomach which limits ev aluation.There is no bowel obstruction. Appendix is not definitely visualized. There is no free intra peritoneal air or fluid. There is no abdominal or pelvic lymphadenopathy. Vague heterogeneous multilo cular/septated appearing collections are noted along the lower anterior abdominal wall musculature in the region of the lower rectus musculature with the collections measuring approximately 16 cm in com bined transverse dimension, 4.2 cm in AP dimension and 7.5 cm in superior inferior dimension. Superf icial cellulitis also noted along the anterior abdominal wall.There is dependent subsegmental atelect asis within the lung bases. There is no acute osseous abnormality.Impression:Infectious appearing mul tilocular/septated abdominal wall collections along the lower rectus musculature with overlying super ficial cellulitis. Report Electronically Signed By: Petros Montes 08/23/2024 4:22:01 AM [EST]
--- NOTE | 2024-08-23 05:35 | PD.GYNHP ---
Documentation for date of: 08/23/24 IT PROFESSIONAL - HPI History of Present Illness History of present illness: H and P dictated STAT code #9 in [facility] [id number] Meds Home Medications and Allergies Home Medications ?Medication ?Instructions ?Recorded ?Confirmed ?Type vit no.95-ferrous 1 tab PO QDAY 05/09/23 08/09/24 History fumarate 28 mg-folic acid 800 mcg tablet () Allergies Allergy/AdvReac Type Severity Reaction Status Date / Time No Known Allergies Allergy Verified 08/09/24 06:26 Exam - IT PROFESSIONAL Vital Signs Temp Pulse Resp BP Pulse Ox O2 Del Method 98.5 F 93 18 119/62 97 Room Air 08/23/24 03:43 08/23/24 03:41 08/23/24 03:41 08/23/24 03:41 08/23/24 03:41 08/23/24 03:41 IT PROFESSIONAL - Results Labs 08/23/24 01:29 08/23/24 01:29 Labs: Short CBC 08/23/24 Range/Units 01:29 WBC 14.9 H (3.6-11.0) Thou/mm3 Hgb 11.1 L (12.0-16.0) g/dL Hct 32.5 L (36.0-46.0) % Plt Count 423 D (140-440) Thou/mm3 BMP 08/23/24 01:29 Sodium 136 Potassium 3.5 Chloride 100 Carbon Dioxide 25.3 BUN 6 L Creatinine 0.6 Glucose 95 Calcium 9.2 Liver Function 08/23/24 Range/Units 01:29 Total Bilirubin 0.8 (0.3-1.2) mg/dL AST 11 (0-34) U/L ALT 8 L (10-49) U/L Alkaline Phosphatase 178 H (46-116) U/L Albumin 4.4 (3.5-5.0) gm/dL Quality Measures Quality Measures none
--- NOTE | 2024-08-23 07:17 | SUR.PHASEI ---
Pt. arrived to recovery via gurney, responds to verbal commands, VSS, no c/o pain or nausea, dressing to abdomen-1 inch iodaform packing, telfa, abd. pad and metaport tape in place, no active bleeding or redness noted, IV flushed and patent, report received from Reina HOYOS and Dr. Duenas.
--- NOTE | 2024-08-23 07:22 | PD.GYNPROC ---
Operative Note - BACK HOE OPERATOR Procedure Date of procedure: 08/23/24 Procedure Performed: Evacuation of wound infection and abdominal wall abscess Indication: Wound infection after C Section Delivery Pre-Op diagnosis: Wound infection Abdominal wall abscess Post-Op diagnosis: Same Anesthesia type: General Procedure description: Evacuation of wound and abdominal wall abscess through Pfannenstiel skin incision Fluids: crystalloid Specimen: none Estimated blood loss (ml): 20 Complications: none Narrative: After proper informed consent was obtained and the patient made aware of the risk complication alternatives and benefits of the proposed procedure she was taken the operating room. She is placed in the supine position on the operating room table and she underwent induction of general anesthesia. She was prepped and draped in usual sterile fashion. Prior to the preparation a wound culture was obtained. A mini laparotomy was performed through a 10 cm Pfannenstiel skin incision at the site of the prior incision. Probing of the fascia in the midline revealed the defect. A 2 cm defect in the fascia was palpable and the subfascial rectus musculature was copiously irrigated with warm normal saline solution. The tissue was severely indurated. The tissue was also hemorrhagic to touch. Using the suction Yankauer the subfascial area was suctioned and the suprapubic region and all around the opening of the fascial incision. After no drainage was noted and no bleeding noted the 2 cm fascial incision was closed using 1 PDS in an inverted mattress fashion. The subcutaneous tissue was irrigated copiously with warm normal saline solution. The incision was probed lateral to the incision edges and the fascia was intact. The wound was packed open with iodoform gauze. The wound was covered with a sterile pressure dressing. She was reversed from general anesthesia in the supine position and transferred to the recovery room in stable condition. She tolerated the procedure well. Counts were correct. Surgical staff S Operation Date: 08/23/24 06:15 <No data on this case meets the specified criteria> Surgeon Dr. Parker Orthodontic Band Maker Nat CRUZ Anesthesia Dr. Duenas. Diagnosis Problem List Completed Was Problem List Reviewed/Reconciled?: Yes
--- NOTE | 2024-08-23 07:45 | SUR.PHASEI ---
Called and gave report on pt. s/p surgery to Renetta HOYOS on M/S unit.
--- NOTE | 2024-08-23 07:46 | SUR.PHASEI ---
Pt. transferred to room 371 via gurney with all of belongings, pt.'s at bedside, pt.'s VSS, no c/o pain or nausea at this time, pt. tolerating ice chips and small sips of water, dressing to abd. CDI, IV flushed and patent. Renetta HOYOS assumed care of pt.
--- NOTE | 2024-08-23 09:01 | ESHP_ITS ---
RE: PAIGE PEARCE : 1990 DATE OF ADMISSION: 08/23/2024 HISTORY OF PRESENT ILLNESS: This is a 34-year-old, who is postop day #14 status post delivery, who presented to ER complaining of drainage of fluid from the incision. The patient was noted to have purulent drainage from the middle of her incision through a 1 cm dehiscence. She denies any nausea, vomiting or diarrhea. She denies any significant abdominal or pelvic pain. She denies any vaginal bleeding. Her white blood count is 14.9 and hemoglobin is 11.1. CT scan shows a vague heterogeneous multiloculated septated appearing collection of fluid along the anterior abdominal wall musculature and region of the lower rectus musculature with the collections measuring approximately 16 x 4.2 x 7.5 cm as well as superficial cellulitis along the anterior abdominal wall. The patient is being admitted for incision and drainage of wound abscess and IV antibiotics. ALLERGIES: NO KNOWN DRUG ALLERGIES. MEDICATIONS: 1. Hydrocodone 5 mg 1 p.o. q. 6 hours p.r.n. pain. 2. vitamin 1 p.o. daily. PAST MEDICAL HISTORY: Syphilis, preeclampsia, placental abruption, labor, chlamydia, and migraine headaches. SOCIAL HISTORY: She denies any alcohol or drug use or smoking. FAMILY HISTORY: Mother and maternal grandmother with migraine headaches. OBSTETRIC HISTORY: 08/09/2024, 39-week repeat delivery without complications; 2013, 40-week normal vaginal delivery, 7 pound 8 ounce male; home delivery in 2019, 34 weeks delivery complicated by placental abruption and preeclampsia. PAST SURGICAL HISTORY: delivery in 2012 and 2023. REVIEW OF SYSTEMS: She denies any chest pain, palpitations, cough, fever, shortness of breath or lower extremity pain. She denies any headache, change in vision or right upper quadrant pain. PHYSICAL EXAMINATION: VITAL SIGNS: Temperature is 98.5, blood pressure is 119/62, heart rate 93, and respirations 18. HEENT: Oropharynx and sclerae are clear. LUNGS: Clear to auscultation bilaterally. HEART: Regular rate and rhythm. ABDOMEN: Incision is draining copious amounts of purulent material from the midline through a 1 cm opening of the skin. EXTREMITIES: Nontender. SKIN: No gross rashes or lesions. NEUROLOGIC: No focal deficits. ASSESSMENT AND PLAN: Postoperative day #14, status post delivery with wound abscess. Plan is incision and drainage of wound abscess. Informed consent was obtained. The patient is made aware of the risks, complications, alternatives, and benefits of the proposed procedure and she agrees. DT: 05:34:55 TT: 06:07:00 Ref: [id number] - TID: [id number] MTDD
[2024-08-23] MEDS: HYDROcodone/APAP 5/325 TABLET 2 TAB PO (09:05)
[2024-08-23] MEDS: PIPER/TAZO 3.375 GM 50 ML IV ×3 (09:42→21:24)
[2024-08-23] MEDS: VANCOMYCIN/NS 1 GM IVPB 200 ML IV ×2 (10:30→22:10)
--- NOTE | 2024-08-23 10:48 | PC.NURSE ---
Call to Dr. Parker regarding the safety of Vancomycin for breast feeding. MD wants patient to discard breast milk during treatment with vanco. Pharmacy recommends discarding milk for 24 hours after last Vanco infusion.Patient education provided, patient verbalizes understanding.
[2024-08-23 12:36] LABS: Basophils # (Auto) 0.1 Thou/mm3 (0.0-0.2); Basophils % (Auto) 0 % (0-2.5); Eosinophils % (Auto) 0 % (0-10); Hematocrit 31.5 % (36.0-46.0); Hemoglobin 10.6 g/dL (12.0-16.0); Immature Granulocytes % (Auto) 1 % (0-0); Immature Granulocytes Auto 0.14 Thou/mm3 (0.00-0.00); Lymphocytes # (Auto) 0.7 Thou/mm3 (1.0-4.8); Lymphocytes % (Auto) 5 % (10-50); Mean Corpuscular HGB Conc 33.7 g/dl (31.0-37.0); Mean Corpuscular Hemoglobin 31.2 pg (25.0-35.0); Mean Corpuscular Volume 93 fL (80-100); Monocytes # (Auto) 0.3 Thou/mm3 (0.0-0.8); Monocytes % (Auto) 2 % (0-12); Neutrophils # (Auto) 13.3 Thou/mm3 (1.8-7.7); Neutrophils % (Auto) 92 % (37-80); Nucleated Red Blood Cell % 0 /100 WBC (0); Platelet Count 411 Thou/mm3 (140-440); RDW Standard Deviation 42.8 fL (36.4-46.3); White Blood Count 14.5 Thou/mm3 (3.6-11.0)
[2024-08-23] MEDS: HYDROcodone/APAP 5/325 TABLET 1 TAB PO (19:23)
[2024-08-24] VITALS (9 sets, daily range): BP systolic 94–107; BP diastolic 47–60; PULSE 54–70; RESP 16–99; TEMP 36.1–36.5; O2SAT 97–100
[2024-08-24] MEDS: RINGERS LACTATED 1000 ML 1,000 ML 100 ML IV (01:11)
[2024-08-24] MEDS: PIPER/TAZO 3.375 GM 50 ML IV ×3 (05:21→23:02)
[2024-08-24 05:50] LABS: Basophils % (Auto) 0 % (0-2.5); Eosinophils # (Auto) 0.1 Thou/mm3 (0.0-0.5); Eosinophils % (Auto) 0 % (0-10); Hematocrit 26.8 % (36.0-46.0); Hemoglobin 8.7 g/dL (12.0-16.0); Immature Granulocytes % (Auto) 1 % (0-0); Lymphocytes # (Auto) 1.5 Thou/mm3 (1.0-4.8); Lymphocytes % (Auto) 13 % (10-50); Mean Corpuscular HGB Conc 32.5 g/dl (31.0-37.0); Mean Corpuscular Hemoglobin 30.5 pg (25.0-35.0); Mean Corpuscular Volume 94 fL (80-100); Monocytes # (Auto) 0.8 Thou/mm3 (0.0-0.8); Monocytes % (Auto) 7 % (0-12); Neutrophils # (Auto) 8.8 Thou/mm3 (1.8-7.7); Neutrophils % (Auto) 78 % (37-80); Nucleated Red Blood Cell % 0 /100 WBC (0); Platelet Count 390 Thou/mm3 (140-440); RDW Standard Deviation 43.4 fL (36.4-46.3); Red Blood Count 2.85 Miln/mm3 (4.00-5.20); White Blood Count 11.2 Thou/mm3 (3.6-11.0)
[2024-08-24] MEDS: VANCOMYCIN/NS 1 GM IVPB 200 ML IV ×3 (06:06→21:18)
--- NOTE | 2024-08-24 07:15 | ESPR_ITS ---
RE: PAIGE PEARCE : 1990 DATE OF SERVICE: 08/24/2024 S: Postop day #1, the patient reports adequate pain relief with her hydrocodone. She is tolerating a regular diet. She is passing flatus. She is voiding without difficulty. O: Vital Signs: Blood pressure 94/59, heart rate 55, respirations 16, temperature 97.2, and pulse ox is 97% on room air. Lungs: Clear to auscultation bilaterally. Heart: Regular rate and rhythm. Abdomen: Dressing dry and intact. Extremities: Nontender. LABORATORY DATA: Hemoglobin is 8.7, white blood cell count is 11.2. Gram stain shows gram-positive cocci. Wound culture is pending. A: Postoperative day #1, status post evacuation of wound and abdominal wall abscess with incision remaining open. P: Daily wound care as and inpatient with nursing commissions specialist. Arrange for outpatient wound care at [facility] upon discharge. Expect discharge home tomorrow if continues to improve. DT: 06:57:21 TT: 07:14:00 Ref: [id number] - TID: [id number] MTDD
--- NOTE | 2024-08-24 09:45 | PC.WOUND ---
Addendum entered by Idalmis Vivas RN 08/24/24 15:55: Wound care with dressing change education done pt and significant other at bedside. All questions/concerns addressed. Supplies x 1 week given at bedside [facility] as scheduled. Wound Clinic referral place and discharge instructions updated. Care endorsed to Richard HOYOS. Original Note: Collaborated with patient, plan for significant other to come to bedside for wound care packing teaching today. Patient requesting pain rx, given per MD orders. Richard HOYOS aware, please call when significant other present.
[2024-08-24] MEDS: HYDROcodone/APAP 5/325 TABLET 2 TAB PO ×2 (09:54→23:58)
--- NOTE | 2024-08-24 09:55 | PC.SS ---
Late note 08-23-23: SS met with patient regarding her d/c plan. Pt is alert/oriented. Pt was admitted for Wound Abscess. Pt explained she came to hospital due to having an abscess which raptured. Pt also explained she had last month. Pt confirmed demographic and contact information is correct on facesheet. Pt resides with life partner, mom, and kids. Pt ambulates independently without assistance or DME. Pt is ok with ADLs. Pt named her mom, Karen Sutherland medical decision maker if she is unable. Patient?s choice is to return home upon d/c. Pt does not have an advance directive, SS offered, and pt declined. Pt states not diabetic and is not on dialysis. D/C plan: Return home Next of Kin: Karendeidre Sutherland, mom, phone# [phone] PCP: Dr. Alicia Rivera from [facility] Address: Correct on facesheet
[2024-08-24 14:10] LABS: Vancomycin,Trough 12.5 mcg/mL (5.0-10.0)
[2024-08-24] MEDS: HYDROcodone/APAP 5/325 TABLET 1 TAB PO (14:34)
[2024-08-25] VITALS: BP 111/65; PULSE 76; RESP 18; TEMP 36.1; O2SAT 100
[2024-08-25 04:00] VITALS: BP 100/54; PULSE 65; RESP 18; TEMP 36.2; O2SAT 97
[2024-08-25] MEDS: PIPER/TAZO 3.375 GM 50 ML IV (05:14)
[2024-08-25] MEDS: VANCOMYCIN/NS 1 GM IVPB 200 ML IV (06:02)
[2024-08-25 07:02] VITALS: PULSE 73; RESP 20; RESP 97
[2024-08-25] MEDS: HYDROcodone/APAP 5/325 TABLET 2 TAB PO (07:12)
[2024-08-25 08:00] VITALS: BP 110/61; PULSE 85; RESP 18; TEMP 36; O2SAT 96
--- NOTE | 2024-08-25 10:29 | ESPR_ITS ---
RE: PAIGE PEARCE : 1990 DATE OF SERVICE: 08/25/2024 S: Postop day #2, the patient reports adequate pain relief. She denies any drainage from her incision. She is tolerating regular diet. She is passing flatus. She is voiding without difficulty. She underwent a wound cleaning yesterday with the web specialist. The patient was instructed on daily home wound cleaning. O: Vital Signs: Blood pressure 100/54, heart rate 65, respirations 18, temperature 97.1. Lungs: Clear to auscultation bilaterally. Heart: Regular rate and rhythm. Abdomen: Dressing dry and intact. Incision with wound packing visualized. No drainage noted. Extremities: Nontender. LABORATORY DATA: Microbiology, abdominal wound infection, Gram-positive cocci, sensitivity is pending. Blood culture negative x2. ASSESSMENT: Abdominal wall abscess at the site of the surgical wound status post incision and drainage of wound and abdominal wall abscess. PLAN: Daily wound changes at home as instructed by the web specialist. [facility] on Tuesday for continued wound care management. Follow up with Dr. Parker in one week. Discharge instructions given. Continue antibiotics as outpatient to cover MRSA: Bactrim/Rifampin. DT: 08:23:16 TT: 10:20:00 Ref: [id number] - TID: [id number] MTDD
--- NOTE | 2024-08-25 11:26 | ESDS_ITS ---
RE: PAIGE PEARCE : 1990 DATE OF ADMISSION: 08/23/2024 DATE OF DISCHARGE: 08/25/2024 HOSPITAL COURSE: This is a 34-year-old who presented to the emergency room on 08/23/2024 complaining of drainage from her section incision. The patient had undergone an uncomplicated repeat delivery at term 14 days prior. She denied any fever or abdominal pain. She was found on exam to have copious drainage of purulent material from a 1 cm opening in the midline of her Pfannenstiel skin incision. Her CT scan showed an abdominal muscle fluid collection of 16 x 4.2 x 7.5 cm and cellulitis along the abdominal wall. Her white blood cell count was 14.9. Her hemoglobin was 11.1. She was given Zosyn and vancomycin and she underwent an incision and drainage of the surgical wound on 08/23/2024, which revealed an abdominal muscle abscess and a 1 cm opening in the fascia in the midline. The fascia was closed with PDS suture and the wound was left open to drain. She continued her Zosyn and vancomycin and had no complications in her recovery. She remained afebrile throughout her hospital course. Her blood cultures were negative x2. Her wound culture was positive for MRSA sensitive to Bactrim and Rifampin. The patient underwent wound care in the hospital and was instructed by the science specialist on home wound cleaning. The patient was instructed to follow up with the [facility] on Tuesday. She was discharged home on 08/25/2024 with a prescription for Bactrim DS one p.o. q. 12 hours for 10 days as well as Rifampin 600mg po daily x 10 days and hydrocodone 5mg po prn pain. DISCHARGE DIAGNOSES: Abdominal wall abscess at site of surgical wound. Incision and drainage of surgical wound and abdominal wall abscess. DT: 08:29:26 TT: 11:25:00 Ref: [id number] - TID: [id number] MTDD
[2024-08-25 12:00] VITALS: BP 105/56; PULSE 78; RESP 18; TEMP 36.2; O2SAT 96
== END 2024-08-25 13:50 | disposition home or self-care (01) | DRG 548 ==
LOC: SERX 08-23 06:22 → SERHOLD 08-23 06:25 → S3SX 08-23 07:50
PROVIDERS: Physician Assistant; Admitting Provider Specialist; Emergency Provider Emergency Medicine; PCP Physician Assistant; Visit Provider Specialist
PROC: 0W9F0ZZ Drainage of Abdominal Wall, Open Approach (ICD-10-PCS; principal; 2024-08-23 06:15)
DX: O86.02 Infection of obstetric surgical wound, deep incisional site (principal); L03.311 Cellulitis of abdominal wall; B95.62 Methicillin resistant Staphylococcus aureus infection as the cause of diseases classified elsewhere
CPT/HCPCS: 36415; 74177; 80053; 80202; 83605; 84145; 85025; 87040; 87070; 87075; 87077; 87186; 87205; 96365; 99285; A4217; A4649; J0295; J1100; J2371; J2543; J2704; J2765; J3010; J3370; J3490; J7030; J7120; Q9967; A9270

== ENCOUNTER → 2024-08-31 | Outpatient (CLI) | payer MEDICAID, SELFPAY | END | disposition home or self-care (01) | LOC: SWHD 12:37 | PROVIDERS: PCP Physician Assistant; Referring Provider Physician Assistant; Visit Provider Surgery | DX: T81.89XA Other complications of procedures, not elsewhere classified, initial encounter (principal) | CPT/HCPCS: 99213; A9270; G0463 ==

== ENCOUNTER → 2024-09-05 | Outpatient (CLI) | payer MEDICAID, SELFPAY | END | disposition home or self-care (01) | LOC: SWHD 14:57 | PROVIDERS: PCP Physician Assistant; Referring Provider Physician Assistant; Visit Provider Student in an Organized Health Care Education/Training Program | DX: T81.89XA Other complications of procedures, not elsewhere classified, initial encounter (principal); Z98.891 History of uterine scar from previous surgery | CPT/HCPCS: 99213; A9270; G0463 ==

== ENCOUNTER 2025-06-26 19:01 | Emergency (ER) | payer MEDICAID, SELFPAY ==
[2025-06-26 19:09] VITALS: BP 116/65; PULSE 80; RESP 20; TEMP 36.8; O2SAT 97
--- NOTE | 2025-06-26 19:15 | XR_ITS ---
Examination: OB Transvaginal ultrasound of the pelvis, complete Technique: Transvaginal sonographic images pelvis performed using alfaro scale imaging Exam date and time: FINDINGS: Severely limited study uterus 16.6 cm Cardiac motion 147 bpm Ovaries obscured by bowel gas IMPRESSION: Please see the transabdominal pelvic sonogram report
--- NOTE | 2025-06-26 19:16 | PD.EDABDPN ---
ED Abdominal Pain RME/HPI General Chief Complaint: Abdominal Pain Stated complaint: ABD CRAMPING, PREG Time seen by provider: 06/26/25 19:09 Arrival date/time: 06/26/25 19:01 Source: patient, RN notes reviewed and old records reviewed Mode of arrival: ambulatory Limitations: no limitations RME / HPI RME / HPI narrative: 35yof of unknown weeks gestation presents to ED for intermittent pelvic cramping x1 week. Patient reports positive home test approx 1 month ago. LMP sometime in December, reports history of irregular cycles. Patient c/o mild dysuria. No fever, nausea/vomiting, flank pain, vaginal discharge or vaginal bleeding reported. No medications or treatments since onset. No OB yet established for this . Related Data Previous Rx's ?Medication ?Instructions ?Recorded hydrocodone 5 mg-acetaminophen 325 1 tab PO Q6H PRN pain #20 tabs //24 mg tablet hydrocodone 5 mg-acetaminophen 325 1 tab PO Q6H PRN pain #20 tabs 08/25/24 mg tablet rifampin 300 mg capsule 600 mg (2 x 300 mg) PO QDAY #10 08/25/24 caps sulfamethoxazole 800 1 tab PO Q12H #20 tabs 08/25/24 mg-trimethoprim 160 mg tablet (Bactrim DS) Allergies Allergy/AdvReac Type Severity Reaction Status Date / Time No Known Allergies Allergy Verified 06/26/25 19:03 Review of Systems Review of Systems Systems Reviewed: All systems reviewed, normal except as documented Constitutional Constitutional: Denies chills and Denies fever(s) Gastrointestinal Gastrointestinal: Denies nausea and Denies vomiting Genitourinary Genitourinary: Denies abnormal vaginal bleeding, Reports dysuria, Denies flank pain, Reports pelvic pain and Denies vaginal discharge Musculoskeletal Musculoskeletal: Denies back pain Past Medical History Past Medical History NEUROLOGIC: Positive Migraine Surgical History SURGICAL: Positive Section Social History SMOKING STATUS: Never smoker SUBSTANCE USE: does not use ALCOHOL: Never Past Medical History Comments PMH COMMENT: gestational HTN with prior pregnancies ED Exam General Limitations: Present no limitations General appearance: Present alert and in no apparent distress Head Head exam: Present atraumatic and normocephalic Eye Eye exam: Present normal appearance, PERRL and EOMI ENT ENT exam: Present normal exam and mucous membranes moist Neck Neck exam: Present normal inspection and full ROM Chest Chest inspection: Present normal inspection and symmetric chest wall rise Respiratory Respiratory exam: Present normal lung sounds bilaterally; Absent respiratory distress Cardiovascular Cardiovascular exam: Present regular rate and normal rhythm Abdominal Exam Abdominal exam: Present soft and other (gravid uterus); Absent distention, tenderness, guarding or rebound Extremities Exam Extremities exam: Present normal inspection and full ROM Neurological Exam Neurological exam: Present alert and oriented X3 Psychiatric Psychiatric exam: Present normal affect and normal mood Skin Skin exam: Present warm, dry, intact and normal color Course Quality Measures none Orders Category Date Time Status US OB >= 14 weeks Fetus Stat Exams 06/26/25 19:43 Completed US OB transvaginal Stat Exams 06/26/25 19:15 Completed Beta HCG,Quantitative Stat Lab 06/26/25 19:23 Completed CBC Stat Lab 06/26/25 19:23 Completed CMP [Comprehensive Metabolic Panel] Stat Lab 06/26/25 19:23 Completed HCG Qualitative,Urine Stat Lab 06/26/25 19:30 Completed UA [Urinalysis] Stat Lab 06/26/25 19:30 Completed Acetaminophen Tab [Tylenol ES Tab] Med 06/26/25 19:15 Discontinued 1,000 mg PO X1 ONE Vital Signs Vital signs: Vital Signs Temperature 98.2 F 06/26/25 19:09 Pulse Rate 80 06/26/25 19:09 Respiratory Rate 20 06/26/25 19:09 Blood Pressure 116/65 06/26/25 19:09 Pulse Oximetry (%) 97 06/26/25 19:09 Oxygen Delivery Method Room Air 06/26/25 19:09 Abdominal Pain MDM MDM Narrative MDM Narrative:: 35yof of unknown weeks gestation presents to ED for intermittent pelvic cramping x1 week. Patient reports positive home test approx 1 month ago. LMP sometime in December, reports history of irregular cycles. Patient c/o mild dysuria. No fever, nausea/vomiting, flank pain, vaginal discharge or vaginal bleeding reported. No medications or treatments since onset. No OB yet established for this . Patient updated on labs and imaging. Strongly encouraged close follow-up with OB, daily prenatals. Tylenol prn pain. Stable for discharge, RTED precautions given. Patient data External records reviewed:: [facility] previous records (08/23/2024 admit for abdominal wall abscess) Clinical information provided by:: patient Social determinants that could affect healthcare access:: other (specify) (Poor access to healthcare) Patient has the following chronic illnesses:: Gestational hypertension, migraines How is presenting disease/condition affected by chronic disease/condition?: uneffected by Evaluation data The following diagnostics were reviewed and interpreted by me:: lab results and radiology exam(s) Lab and/or radiology exams considered but not ordered:: None Interpretation Summary: No leukocytosis Mild anemia (hx of anemia) hCG quant 2929 UA -leuks/nitrites OB ultrasound: Viable IUP per my read Medications / Prescriptions Medications or Prescriptions considered but not ordered:: No antibiotic recommended at this time Medication administrations:: Medication Administration History Discontinued Medications Acetaminophen (Acetaminophen 500 Mg Tablet) 1,000 mg PO X1 ONE Stop: 06/26/25 19:16 Last Admin: 06/26/25 20:03 Dose: 1,000 mg Documented By: Above medication administered in ED Consultations Consultation(s) initiated? (list below): No Diagnosis Differential diagnosis abdominal pain: other (Abdominal pain in , UTI, threatened miscarriage, ectopic , subchorionic hemorrhage) Most likely diagnosis given after review of the tests above:: Abdominal pain in , second trimester Admission Indicated Admission indicated?: not indicated Admission Request Was there a request for admission?: No Disposition Plan Disposition Plan: Discharge Discharge Attestation Discharge Attestation: The patient and all family members were given an opportunity to ask questions and understood the discharge instructions. Discharge instructions specifically effects, indications for sooner follow up or return to the emergency department, and the expected course of current diagnosis. Patient condition: Stable Discharge Plan Plan Patient Disposition: HOME (Self Care) Patient condition on transfer: Stable Prescriptions/Referrals Prescriptions/Med Rec: No Action hydrocodone-acetaminophen 5-325 mg tablet 1 tab PO Q6H MDD 4 PRN (Reason: pain) Qty: 20 0RF sulfamethoxazole-trimethoprim [Bactrim DS] 800-160 mg tablet 1 tab PO Q12H Qty: 20 0RF hydrocodone-acetaminophen 5-325 mg tablet 1 tab PO Q6H MDD 4 PRN (Reason: pain) Qty: 20 0RF rifampin 300 mg capsule 600 mg PO QDAY Qty: 10 0RF Rx Instructions: MRSA Referrals: Alicia Rivera PA-C [Primary Care Provider] - In 1 week Problem List Clinical Impression: Pelvic pain during Patient/Caregiver Discharge Instructions Education Materials: Preg 2nd Trimester Additional Instructions: Your ultrasound shows you are 24 weeks . Please closely follow-up with OB for care. Start taking a daily vitamin. Tylenol can be taken as needed for pain. Print Language: Belizean Stand Alone Forms: Taylor Award Info., Patient Portal Info Letter PA/ANESTHESIOLOGY TECH Supervising Physician PA/ANESTHESIOLOGY TECH Supervising Physician: Edenilson
[2025-06-26 19:30] LABS: Basophils # (Auto) 0.0 Thou/mm3 (0.0-0.2); Basophils % (Auto) 1 % (0-2.5); Eosinophils # (Auto) 0.5 Thou/mm3 (0.0-0.5); Eosinophils % (Auto) 6 % (0-10); Hematocrit 30.9 % (36.0-46.0); Hemoglobin 10.6 g/dL (12.0-16.0); Immature Granulocytes Auto 0.02 Thou/mm3 (0.00-0.00); Lymphocytes # (Auto) 1.0 Thou/mm3 (1.0-4.8); Lymphocytes % (Auto) 13 % (10-50); Mean Corpuscular HGB Conc 34.3 g/dl (31.0-37.0); Mean Corpuscular Hemoglobin 31.5 pg (25.0-35.0); Mean Corpuscular Volume 92 fL (80-100); Monocytes # (Auto) 0.5 Thou/mm3 (0.0-0.8); Monocytes % (Auto) 6 % (0-12); Neutrophils # (Auto) 6.1 Thou/mm3 (1.8-7.7); Neutrophils % (Auto) 75 % (37-80); Nucleated Red Blood Cell # 0.00 Thou/mm3 (0.00-0.00); Nucleated Red Blood Cell % 0 /100 WBC (0); Platelet Count 214 Thou/mm3 (140-440); RDW Standard Deviation 43.7 fL (36.4-46.3); Red Blood Count 3.37 Miln/mm3 (4.00-5.20); White Blood Count 8.1 Thou/mm3 (3.6-11.0)
--- NOTE | 2025-06-26 19:43 | XR_ITS ---
Examination: Complete OB ultrasound greater than 14 weeks Date and time of exam: June 26, 2025, 1741 hours INDICATIONS: Pelvic cramping beginning 1 week ago Findings: Viable intrauterine single fetus with single amniotic sac presentation breech Cardiac motion 150 bpm Placenta posterior grade 2 Umbilical cord insertion 3 vessel seen Amniotic fluid index adequate spine maternal left Cervix 3.6 cm Ovaries obscured by bowel gas. Composite estimated gestational age based on BPD, head circumference, abdominal circumference, femur length is 24 weeks 0 days Estimated weight 656.9 g. Survey of intracranial anatomy, spinal anatomy, abdominal anatomy, four-chamber heart performed with no abnormalities identified. Impression: Viable intrauterine gestation breech presentation Estimated weight 656.9 g.
[2025-06-26 19:57] LABS: Collection Type, Urine Clean Catch
[2025-06-26] MEDS: ACETAMINOPHEN 500 MG TABLET 1000 MG PO (20:03)
[2025-06-26 20:04] LABS: Bilirubin,Urine Negative (Negative); Blood,Urine 1+ (Negative); Clarity,Urine Clear (Clear/Hazy); Color,Urine Lt-Yellow (Lt Yel-Yel); Glucose, Urine Negative (Negative); Ketones,Urine Negative (Negative); Leukocyte Esterase,Urine Negative (Negative); Nitrite,Urine Negative (Negative); PH,Urine 6.5 (5.0-7.0); Protein,Urine Negative (Neg - Trace); RBC,Urine 4 /hpf (0-3); Specific Gravity,Urine 1.024 (1.001-1.035); Squamous Epithelial Cell,Urine 8 /hpf (0-5); Urobilinogen,Urine 2.0 mg/dL (0.0-1.0); WBC,Urine 2 /hpf (0-5)
[2025-06-26 20:06] LABS: HCG Qualitative,Urine Positive
[2025-06-26 20:19] LABS: Alanine Aminotransferase 14 U/L (10-49); Albumin, Serum 4.1 gm/dL (3.5-5.0); Albumin/Globulin Ratio 1.6 (1.2-2.2); Alkaline Phosphatase 81 U/L (46-116); Anion Gap 9 (7-16); Aspartate Amino Transferase 18 U/L (0-34); BUN/Creatinine Ratio 12 Ratio (12-20); Beta HCG,Quantitative 2929 mIU/mL (<5.0); Bilirubin,Total 0.4 mg/dL (0.3-1.2); Blood Urea Nitrogen 6 mg/dL (9-23); Calcium 9.5 mg/dL (8.3-10.6); Calcium (Corrected) 9.5 mg/dL (8.5-10.1); Carbon Dioxide 26.4 mMol/L (20.0-31.0); Chloride 103 mMol/L (98-107); Creatinine (Component) 0.5 mg/dL (0.6-1.3); Globulin 2.6 gm/dL (2.3-3.5); Glucose 84 mg/dL (74-106); Osmolality,Calculated 272 (275-295); Potassium 3.8 mMol/L (3.4-5.1); Sodium 138 mMol/L (136-145); Total Protein 6.7 gm/dL (5.7-8.2); eGFR > 60 See Note
[2025-06-26 21:00] VITALS: RESP 16
== END 2025-06-26 21:00 | disposition home or self-care (01) ==
PROVIDERS: Physician Assistant; Emergency Provider Emergency Medicine; PCP Physician Assistant
DX: O26.892 Other specified pregnancy related conditions, second trimester (principal); R10.9 Unspecified abdominal pain; D64.9 Anemia, unspecified
CPT/HCPCS: 36415; 76805; 76817; 80053; 81001; 81025; 84702; 85025; 99283; A9270

== ENCOUNTER 2025-07-23 13:05 | Outpatient (AMB) | payer MEDICAID, SELFPAY ==
[2025-07-23 13:15] VITALS: BP 100/66; PULSE 78; RESP 16; TEMP 36.4; O2SAT 97; BMI 35.4
--- NOTE | 2025-07-23 13:15 | OBCLNT_ITS ---
Vital Signs 07/23/25 13:15 Height 1.52 m Height Method Stated Weight 82.327 kg Weight Measurement Method Standing Scale BMI 35.4 BP 100/66 Blood Pressure Source Automatic Cuff Blood Pressure Location Left Upper Arm Position Sitting Respiration 16 Pulse 78 Pulse Source Monitor Temp 97.6 F Temp Source Oral Pulse Oximetry (%) 97 Oxygen Delivery Method Room Air Allergies/Home Meds Allergies & Medications Allergies No Known Allergies Allergy (Verified 07/23/25 13:16) Medication Reconciliation omeprazole 20 mg capsule,delayed release 20 mg PO QDAY 12 weeks #84 caps 07/23/25 [Rx] vitamins-iron fumarate 66 mg iron-folic acid 1 mg tablet tab PO 07/23/25 [History Confirmed 07/23/25] Intake Visit Data Collection New Patient or Established: Established Patient (seen at [facility] within 3 years) Reason for Visit:: INITIAL CARE Seen by Clinical Staff ONLY (RN/MA): No Environmental Programs Manager Required: No Do You Feel Safe at Home: Yes Authorities Contacted: N/A PCP or OBGYN visit in last 3 months: Yes Hx Now: Yes Are you currently on any form of Control: No Last menstrual period: 12/31/24 Pain Present Currently: No Pain Scale Used: Pereira-Oswald/Numerical Pain scale:: 0 Smoking Status Smoking Status: Never smoker Immunizations Flu Vaccine in the Last 12 Months: No Flu Vaccine Exclusion Criteria: Refused by Patient Questionnaires Covid-19 Vaccine Questionnaire Has patient been vacinated for Covid-19 Have you been vacinated for Covid-19: No PHQ-9 PHQ-2 Over the last 2 weeks, how often have you been bothered by any of the following problems? 1. Little interest or pleasure in doing things: not at all 2. Feeling down, depressed, or hopeless: not at all Total score: 0 PHQ-9 3. Trouble falling or staying asleep, or sleeping too much: Not at all 4. Feeling tired or having little energy: Not at all 5. Poor appetite or overeating: Not at all 6. Feeling bad about yourself - or that you are a failure or have let yourself or your family down: Not at all 7. Trouble concentrating on things, such as reading the newspaper or watching television: Not at all 8. Moving or speaking so slowly that other people could have noticed? - Or the opposite - being so fidgety or restless that you have been moving around a lot more than usual: not at all 9. Thoughts that you would be better off or of hurting yourself in some way: Not at all Total score: 0 Source: Developed by Drs. En Paul, Reva Price, Zackery Lopez and colleagues, with an educational arsh from [employer]. Depression screen completed yes Social History Living Situation History Marital Status: Life Partner Lives With: Family Housing: Manufactured home Housing Other:: Pt lives with life partner, mom, and kids Tobacco History Smoking Status: Never smoker Second Hand Smoke Exposure: No Alcohol History Alcohol Intake: Never Domestic Abuse History Do You Feel Safe at Home: Yes History of Present Illness HPI Narrative 35Years old G4?P3?at gestational age?27.6 weeks based on US of dated 06/26/2025 at 24 weeks in ED No complaints so far/ h/o abdominal wound abscess in last c section done 07/2024 Here for first visit LPS does not remember LMP not sure Ultrasound 06/26/2025 at 24 weeks medical problems denies except constipation and recent N/V after thanksgiving , better now Allergies NKDA Surgical history c section x 2 social history denies any smoking/ substance abuse COLOR STRIPPER: Past Medical History Past Medical History: No Hx Neurological Disorders, No Hx Cardiac Disorders, No Hx Blood Disorders, No Hx Anemia, No Hx Gastrointestinal Disorders, No Hx Renal Disease, No Hx Diabetes Mellitus Type 1 and No Hx Diabetes Mellitus Type 2 OB Initial Visit OB Flowsheet OB Flowsheet Initial Weight: Not Recorded Date -?-?-?-?-?-?-?-?-?-?-?-?- EGA Weight BP Alb Glu CTX Pres Fundal ht FHR Mov Dilation Station Eff acement Hx Notes Visit Note 07/23/25 -?-?-?-?-?-?-?-?-?-?-?-?- 27w 6d 82.327 kg 100/66 absent unknown 28 155 active Menstrual History Menstrual reliability: definite Flow: normal Menstrual regularity: irregular Monthly: No Age at menarche: 14 On control pills at conception: No Associated symptoms (LMP): Denies amenorrhea, nausea, vomiting, fatigue, breast tenderness, urinary frequency, irritability, bloating or other OB History : 4 Para: 3 Hx # Pregnancies: 1 # of Living Children: 3 Delivery History 1st : Child's name: MOHINDER date: 06/09/23 sex: male Gestational age at delivery (weeks): 40 Delivery type: vaginal Delivery complications: NONE History of depression before or after : No 2nd : Child's name: PRAMOD date: 06/09/23 sex: male Gestational age at delivery (weeks): 34 Delivery type: Delivery complications: PLACENTA DETACHED History of depression before or after : No 3rd : Child's name: ONEIL date: 07/30/24 sex: female Gestational age at delivery (weeks): 40 Delivery type: Delivery complications: NONE History of depression before or after : No Infection History & Risk Evaluation History of STDs: none Genetic Screening & History Genetic Screening/Teratology Counseling - Includes patient, baby's father, or anyone in either family with: 1. Patient's age 35 years or older as of estimated date of delivery: No 2. Thalassemia (Kyrgyz, Macedonian, Mediterranean, or Background); MCV less than 80: No 3. Neural Tube Defect (Meningomyelocele, Spina Bifida, or Anencephaly): No 4. Congenital Heart Defect: No 5. Down Syndrome: No 6. Jan-Sachs (Ashkenazi Buddhist, Cajun, Hungarian Chadian): No 7. Ronnie Disease (Ashkenazi Buddhist): No 8. Familial Dysautonomia (Ashkenazi Buddhist): No 9. Sickle Cell Disease or Trait (): No 10. Hemophilia or other blood disorders: No 11. Muscular Dystrophy: No 12. Cystic Fibrosis: No 13. Ethel's Chorea: No 14. Mental Retardation/Autism: Yes (FATHER OF THE BABY ) 15. Other inherited genetic or chromosomal disorder: No 16. Maternal Metabolic Disorder (EG,TYPE 1 Diabetes, PKU): No 17. Patient or baby's father had a child with defects not listed above: No 18. Recurrent loss or a stillbirth: No 19. Medications (including supplements, vitamins, herbs or otc drugs)/illicit/recreational drugs/alcohol since last menstrual period: No 20. Any other: No Infection History 1. Live with someone with TB or exposed to TB: No 2. Rash or viral illness since last menstrual period: No 3. Hepatitis B,C: No Other (see comments) Source: [employer] Review of Systems Review of Systems Narrative Review of Systems: constipation and reflux Systems Reviewed: All systems reviewed, normal except as documented Constitutional Constitutional: Denies fatigue Gastrointestinal Gastrointestinal: Denies bloating, Denies nausea and Denies vomiting Genitourinary Genitourinary: Denies amenorrhea and Denies urinary frequency Psychiatric Psychiatric: Denies irritability Endocrine Endocrine: Denies fatigue Exam Narrative Physical exam: Alert and oriented x 3 no shortness of breath Pain no chest pain no palpitations Chest clear bilaterally no additional sounds, no wheezing no rales CVS regular rate and rhythm No CVAT Abdomen nontender, normal bowel sounds No guarding no rigidity No hernias Office Procedures OBC Clinic LOC & Office Proc's Nursing/Assessment Patient Status: Established Patient OB Clinic Nursing Assessment: Medication Reconciliation, Update PMH in EMR and Vital Signs OB Clinic Coordination of Care: Complex Care and Chronic Disease 1-5, Consent ,records obtained, informed consent, Education Simp Pt/Fam, 1 Ins Authorization, Lab and Imaging orders, Results/Orders obtained and Staff clarify orders Special Needs: Heart tones Established Patient Charge Established Patient Point Assignment: 150 Established Patient Point Charge: EP Level 4 (120-155) Assessment & Plan Diagnosis / Problem List (1) : Status: Acute Qualifiers: Weeks of gestation: 27 weeks Qualified Code(s): Z3A.27 - 27 weeks gestation of (2) Previous section: Status: Acute (3) Late care: Status: Acute Additional Plan 35 years at 27.6 weeks and late care / previous c sections x 2 / late for MSAFP / Plan anatomy scan / refused vaccines for flu and Tdap / not sure she wants to deliver here or in [place] / dating by a 24 week US done 06/26/2025 in ED ordered Ob panel 1 hour GTT/ TSH and CMP and GC and CT and NIPT and Carrier screening / refused BTL Follow Up: 2 Weeks
== END 2025-07-23 13:53 | disposition home or self-care (01) ==
LOC: HODSOBC 13:05
PROVIDERS: Supervising Provider Obstetrics & Gynecology; Visit Provider Obstetrics & Gynecology
DX: O09.33 Supervision of pregnancy with insufficient antenatal care, third trimester (principal); O09.292 Supervision of pregnancy with other poor reproductive or obstetric history, second trimester; O34.219 Maternal care for unspecified type scar from previous cesarean delivery; Z3A.33 33 weeks gestation of pregnancy; Z28.21 Immunization not carried out because of patient refusal
CPT/HCPCS: 99214; G0463

== ENCOUNTER 2025-08-07 14:45 | Outpatient (AMB) | payer MEDICAID, SELFPAY ==
--- NOTE | 2025-08-07 15:01 | OBCLNT_ITS ---
Vital Signs 08/07/25 15:02 Height 1.52 m Height Method Stated Weight 84.482 kg Weight Measurement Method Standing Scale BMI 36.6 BP 107/70 Blood Pressure Source Automatic Cuff Blood Pressure Location Left Upper Arm Position Sitting Respiration 16 Pulse 88 Pulse Source Monitor Temp 97.6 F Temp Source Oral Pulse Oximetry (%) 97 Oxygen Delivery Method Room Air Allergies/Home Meds Allergies & Medications Allergies No Known Allergies Allergy (Verified 08/07/25 15:03) Medication Reconciliation omeprazole 20 mg capsule,delayed release 20 mg PO QDAY 12 weeks #84 caps 07/23/25 [Rx Confirmed 08/07/25] vitamins-iron fumarate 66 mg iron-folic acid 1 mg tablet tab PO 07/23/25 [History Confirmed 08/07/25] Immunizations Immunizations Flu Vaccine in the Last 12 Months: No Flu Vaccine Exclusion Criteria: Refused by Patient Care OB Visit Log OB Flowsheet Initial Weight: Not Recorded Date -?-?-?-?-?-?-?-?-?-?-?-?- EGA Weight BP Alb Glu CTX Pres Fundal ht FHR Mov Dilation Station Effaceme nt Hx Notes Visit Note 07/23/25 -?-?-?-?-?-?-?-?-?-?-?-?- 27w 6d 82.327 kg 100/66 absent unknown 28 155 active 08/07/25 -?-?-?-?-?-?-?-?-?-?-?-?- 30w 0d 84.482 kg 107/70 absent cephalic 30 150 active AMERICA Calculator Estimated Delivery Date Method Current WG Current Estimate 10/16/25 Ultrasound #1 30w 0d Notes Visit Date: 08/07/25 Last Updated by: Judit Ley MD 30 weeks / late PNC/ previous 2 C sections / refused BTL/labs done 07/25/2025 RPR reactive at 1:1 titre and Treponemal Ab positive / repeat Titres in 4 weeks on Aug 25 2025 / B positive / Rubella NI /Hba1c is 5.0/ Patient needs Bicillin weekly x 3 and will start this Tuesday her last baby had syphilis and her partner just started treatment. Patient to avoid intercourse with partner HIV /HepC negative GC and Ct negative NIPT negative / late for MSAFP Visit Date: 07/23/25 Last Updated by: Judit Ley MD 35 years at 27.6 weeks and late care / previous c sections x 2 / late for MSAFP / Plan anatomy scan / refused vaccines for flu and Tdap / not sure she wants to deliver here or in [place] / dating by a 24 week US done 06/26/2025 in ED ordered Ob panel 1 hour GTT/ TSH and CMP and GC and CT and NIPT and Carrier screening / refused BTL Office Procedures OBC Clinic LOC & Office Proc's Nursing/Assessment Patient Status: Established Patient OB Clinic Nursing Assessment: Medication Reconciliation, Update PMH in EMR and Vital Signs OB Clinic Coordination of Care: Complex Care and Chronic Disease 1-5, Consent,records obtained, informed consent, Education Simp Pt/Fam, 1 Ins Authorization, Lab and Imaging orders, Results/Orders obtained and Staff clarify orders Special Needs: Heart tones Established Patient Charge Established Patient Point Assignment: 150 Established Patient Point Charge: EP Level 4 (120-155) Assessment & Plan Diagnosis / Problem List (1) 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
[2025-08-07 15:02] VITALS: BP 107/70; PULSE 88; RESP 16; TEMP 36.4; O2SAT 97; BMI 36.6
== END 2025-08-07 15:25 | disposition home or self-care (01) ==
LOC: HODSOBC 14:45
PROVIDERS: Supervising Provider Obstetrics & Gynecology; Visit Provider Obstetrics & Gynecology
DX: O09.893 Supervision of other high risk pregnancies, third trimester (principal); O98.113 Syphilis complicating pregnancy, third trimester; O09.33 Supervision of pregnancy with insufficient antenatal care, third trimester; O09.293 Supervision of pregnancy with other poor reproductive or obstetric history, third trimester; O34.219 Maternal care for unspecified type scar from previous cesarean delivery; Z3A.30 30 weeks gestation of pregnancy; Z28.21 Immunization not carried out because of patient refusal
CPT/HCPCS: 99214; G0463

== ENCOUNTER 2025-08-09 10:06 | Outpatient (AMB) | payer MEDICAID, SELFPAY ==
--- NOTE | 2025-08-09 10:18 | OBCLNT_ITS ---
Vital Signs 08/09/25 10:22 Height 1.57 m Height Method Stated Weight 83.518 kg Weight Measurement Method Standing Scale BMI 33.8 BP 109/65 Blood Pressure Source Automatic Cuff Blood Pressure Location Left Upper Arm Position Sitting Respiration 18 Pulse 93 Pulse Source Monitor Temp 97.2 F Temp Source Oral Pulse Oximetry (%) 98 Oxygen Delivery Method Room Air Allergies/Home Meds Allergies & Medications Allergies No Known Allergies Allergy (Verified 08/09/25 10:23) Medication Reconciliation omeprazole 20 mg capsule,delayed release 20 mg PO QDAY 12 weeks #84 caps 07/23/25 [Rx Confirmed 08/09/25] vitamins-iron fumarate 66 mg iron-folic acid 1 mg tablet tab PO 07/23/25 [History Confirmed 08/09/25] Immunizations Immunizations Flu Vaccine in the Last 12 Months: No Flu Vaccine Exclusion Criteria: No Exclusion Criteria Care OB Visit Log OB Flowsheet Initial Weight: Not Recorded Date -?-?-?-?-?-?-?-?-?-?-?-?- EGA Weight BP Alb Glu CTX Pres Fundal ht FHR Mov Dilation Station Effac ement Hx Notes Visit Note 07/23/25 -?-?-?-?-?-?-?-?-?-?-?-?- 27w 6d 82.327 kg 100/66 absent unknown 28 155 active 08/07/25 -?-?-?-?-?-?-?-?-?-?-?-?- 30w 0d 84.482 kg 107/70 absent cephalic 30 150 active 08/09/25 -?-?-?-?-?-?-?-?-?-?-?-?- 30w 2d 83.518 kg 109/65 here for the bicillin injection for positive RPR AMERICA Calculator Estimated Delivery Date Method Current WG Current Estimate 10/16/25 Ultrasound #1 30w 2d Notes Visit Date: 08/07/25 Last Updated by: Judit Ley MD 30 weeks / late PNC/ previous 2 C sections / refused BTL/labs done 07/25/2025 RPR reactive at 1:1 titre and Treponemal Ab positive / repeat Titres in 4 weeks on Aug 25 2025 / B positive / Rubella NI /Hba1c is 5.0/ Patient needs Bicillin weekly x 3 and will start this Tuesday her last baby had syphilis and her partner just started treatment. Patient to avoid intercourse with partner HIV /HepC negative GC and Ct negative NIPT negative / late for MSAFP Visit Date: 07/23/25 Last Updated by: Judit Ley MD 35 years at 27.6 weeks and late care / previous c sections x 2 / late for MSAFP / Plan anatomy scan / refused vaccines for flu and Tdap / not sure she wants to deliver here or in [place] / dating by a 24 week US done 06/26/2025 in ED ordered Ob panel 1 hour GTT/ TSH and CMP and GC and CT and NIPT and Carrier screening / refused BTL Office Procedures OBC Clinic LOC & Office Proc's Nursing/Assessment Patient Status: Established Patient OB Clinic Nursing Assessment: Medication Reconciliation, Update PMH in EMR and Vital Signs OB Clinic Coordination of Care: Complex Care and Chronic Disease 1-5, Consent,records obtained, informed consent, Education Simp Pt/Fam, Lab and Imaging orders, Results/Orders obtained and Staff clarify orders Special Needs: Heart tones Established Patient Charge Established Patient Point Assignment: 135 Established Patient Point Charge: EP Level 4 (120-155) Injection/Vaccine Admin SQ Im Injection: Yes Office Meds penicillin G benzathine 2,400,000 unit/4 mL intramuscular syringe Performing Provider: Judit Ley MD Performing Location: [facility] Administered by: Kelly Colon MA on 08/09/25 11:47 Dose Route Admin Location Dispensed Lot Number Expiration Date Pack age [facility] Stock Sorter 2.4 mmu IM RIGHT GLUTE 4 mL [id number] 04/10/22 08513-823-26 [id number] [facility] [employer]
[2025-08-09 10:22] VITALS: BP 109/65; PULSE 93; RESP 18; TEMP 36.2; O2SAT 98; BMI 33.8
== END 2025-08-09 11:00 | disposition home or self-care (01) ==
LOC: HODSOBC 10:06
PROVIDERS: Supervising Provider Obstetrics & Gynecology; Visit Provider Obstetrics & Gynecology
DX: O98.113 Syphilis complicating pregnancy, third trimester (principal); Z3A.30 30 weeks gestation of pregnancy
CPT/HCPCS: 96372; 99214; J0561; G0463

== ENCOUNTER 2025-08-16 08:54 | Outpatient (AMB) | payer MEDICAID, SELFPAY ==
[2025-08-16 09:04] VITALS: BP 101/66; PULSE 75; RESP 14; TEMP 36.5; O2SAT 98; BMI 33.5
--- NOTE | 2025-08-16 09:04 | AMB.OBPNC ---
Vital Signs 08/16/25 09:04 Height 1.57 m Height Method Stated Weight 82.667 kg Weight Measurement Method Standing Scale BMI 33.5 BP 101/66 Blood Pressure Source Automatic Cuff Blood Pressure Location Left Upper Arm Position Sitting Respiration 14 Pulse 75 Pulse Source Monitor Temp 97.7 F Temp Source Oral Pulse Oximetry (%) 98 Oxygen Delivery Method Room Air Allergies/Home Meds Allergies & Medications Allergies No Known Allergies Allergy (Verified 08/16/25 09:05) Medication Reconciliation omeprazole 20 mg capsule,delayed release 20 mg PO QDAY 12 weeks #84 caps 07/23/25 [Rx Confirmed 08/16/25] vitamins-iron fumarate 66 mg iron-folic acid 1 mg tablet tab PO 07/23/25 [History Confirmed 08/16/25] clotrimazole 1 % vaginal cream 1 appful vaginal QHS #1 tube 08/16/25 [Rx] fluconazole 150 mg tablet 150 mg PO QDAY 3 days #3 tabs 08/16/25 [Rx] Immunizations Immunizations Flu Vaccine in the Last 12 Months: No Flu Vaccine Exclusion Criteria: Refused by Patient Care OB Visit Log OB Flowsheet Initial Weight: Not Recorded Date <del>?</del> EGA Weight BP Alb Glu CTX Pres Fundal ht FHR Mov Dilation Station Effacement Hx Notes Visit Note 07/23/25 <del>?</del> 27w 6d 82.327 kg 100/66 absent unknown 28 155 active 08/07/25 <del>?</del> 30w 0d 84.482 kg 107/70 absent cephalic 30 150 active 08/09/25 <del>?</del> 30w 2d 83.518 kg 109/65 here for the bicillin injection for positive RPR 08/16/25 <del>?</del> 31w 2d 82.667 kg 101/66 absent cephalic 31 145 active Complains of vaginal discharge and itching. Simms when void. Reports good movement. No complaints of contractions Low supply of Bicillin in the count includes the [facility]. Patient was referred to her provider at [facility] for Bicillin No. 2. Stressed the importance of no sex until partner is fully treated. New swab today. Diflucan 150 p.o. daily x 3 and Gyne-Lotrimin x 7. And return in a week for Bicillin No. 3 [place] Calculator Estimated Delivery Date Method Current WG Current Estimate 10/16/25 Ultrasound #1 31w 2d Notes Visit Date: 08/07/25 Last Updated by: Judti Ley MD 30 weeks / late PNC/ previous 2 C sections / refused BTL/labs done 07/25/2025 RPR reactive at 1:1 titre and Treponemal Ab positive / repeat Titres in 4 weeks on Aug 25 2025 / B positive / Rubella NI /Hba1c is 5.0/ Patient needs Bicillin weekly x 3 and will start this Tuesday her last baby had syphilis and her partner just started treatment. Patient to avoid intercourse with partner HIV /HepC negative GC and Ct negative NIPT negative / late for MSAFP Visit Date: 07/23/25 Last Updated by: Judit Ley MD 35 years at 27.6 weeks and late care / previous c sections x 2 / late for MSAFP / Plan anatomy scan / refused vaccines for flu and Tdap / not sure she wants to deliver here or in [place] / dating by a 24 week US done 06/26/2025 in ED ordered Ob panel 1 hour GTT/ TSH and CMP and GC and CT and NIPT and Carrier screening / refused BTL Office Procedures OBC Clinic LOC & Office Proc's Nursing/Assessment Patient Status: Established Patient OB Clinic Nursing Assessment: Medication Reconciliation, Update PMH in EMR and Vital Signs OB Clinic Coordination of Care: Complex Care and Chronic Disease 1-5, Consent,records obtained, informed consent, Education Simp Pt/Fam, 1 Ins Authorization, Lab and Imaging orders, Results/Orders obtained and Staff clarify orders Special Needs: Heart tones Established Patient Charge Established Patient Point Assignment: 150 Established Patient Point Charge: EP Level 4 (120-155) Assessment & Plan Diagnosis / Problem List (1) Syphilis affecting in third trimester: Status: Acute (2) Previous section: Status: Acute (3) Encounter for supervision of high risk in third trimester, antepartum: Status: Acute Plan NuSwab today. Gyne-Lotrimin x 7. Diflucan 150 x 3 days. Stressed the importance of no sex. Advised patient to get Bicillin today Magda. There is no Bicillin in-house or the clinic today. Kick count twice a day. Discussed labor precautions. And return in a week OB check and Bicillin No. 3 Additional Plan Follow Up: 1 Week (bicillin and obc)
== END 2025-08-16 09:56 | disposition home or self-care (01) ==
LOC: HODSOBC 08:54
PROVIDERS: Supervising Provider Advanced Practice Midwife; Visit Provider Advanced Practice Midwife
DX: O09.893 Supervision of other high risk pregnancies, third trimester (principal); O98.113 Syphilis complicating pregnancy, third trimester; O09.293 Supervision of pregnancy with other poor reproductive or obstetric history, third trimester; O34.219 Maternal care for unspecified type scar from previous cesarean delivery; O26.893 Other specified pregnancy related conditions, third trimester; N89.8 Other specified noninflammatory disorders of vagina; L29.3 Anogenital pruritus, unspecified; Z3A.31 31 weeks gestation of pregnancy; Z28.21 Immunization not carried out because of patient refusal
CPT/HCPCS: 96372; 99214; G0463

== ENCOUNTER 2025-08-20 13:11 | Outpatient (AMB) | payer MEDICAID, SELFPAY ==
[2025-08-20 13:44] VITALS: BP 104/64; PULSE 105; RESP 18; TEMP 36.2; O2SAT 98; BMI 33.2
--- NOTE | 2025-08-20 13:44 | OBCLNT_ITS ---
Vital Signs 08/20/25 13:44 Height 1.57 m Height Method Stated Weight 81.873 kg Weight Measurement Method Standing Scale BMI 33.2 BP 104/64 Blood Pressure Source Automatic Cuff Blood Pressure Location Left Upper Arm Position Sitting Respiration 18 Pulse 105 H Pulse Source Monitor Temp 97.2 F Temp Source Oral Pulse Oximetry (%) 98 Oxygen Delivery Method Room Air Allergies/Home Meds Allergies & Medications Allergies No Known Allergies Allergy (Verified 08/20/25 13:44) Medication Reconciliation omeprazole 20 mg capsule,delayed release 20 mg PO QDAY 12 weeks #84 caps 07/23/25 [Rx Confirmed 08/20/25] vitamins-iron fumarate 66 mg iron-folic acid 1 mg tablet tab PO 07/23/25 [History Confirmed 08/20/25] clotrimazole 1 % vaginal cream 1 appful vaginal QHS #1 tube 08/16/25 [Rx C onfirmed 08/20/25] penicillin G benzathine 2,400,000 unit/4 mL intramuscular syringe (Bicillin L-A) 2.4 mmu (4 mL) IM QWEEK 3 doses #40 mL 08/20/25 [Rx] Immunizations Immunizations Flu Vaccine in the Last 12 Months: No Flu Vaccine Exclusion Criteria: Already Received Care OB Visit Log OB Flowsheet Initial Weight: Not Recorded Date -?-?-?-?-?-?-?-?-?-?-?-?- EGA Weight BP Alb Glu CTX Pres Fundal ht FHR Mov Dilation Station Effacement Hx Notes Visit Note 07/23/25 -?-?-?-?-?-?-?-?-?-?-?-?- 27w 6d 82.327 kg 100/66 absent unknown 28 155 active 08/07/25 -?-?-?-?-?-?-?-?-?-?-?-?- 30w 0d 84.482 kg 107/70 absent cephalic 30 150 active 08/09/25 -?-?-?-?-?-?-?-?-?-?-?-?- 30w 2d 83.518 kg 109/65 here for the bicillin injection for positive RPR 08/16/25 -?-?-?-?-?-?-?-?-?-?-?-?- 31w 2d 82.667 kg 101/66 absent cephalic 31 145 active Complains of vaginal discharge and itching. Simms when void. Reports good movement. No complaints of contractions [place] the [place] Patient was referred to her provider at [facility] for Bicillin No. 2. Stressed the importance of no sex until partner is fully treated. New swab today. Diflucan 150 p.o. daily x 3 and Gyne-Lotrimin x 7. And return in a week for Bicillin No. 3 [place] Calculator Estimated Delivery Date Method Current WG Current Estimate 10/16/25 Ultrasound #1 31w 6d Notes Visit Date: 08/07/25 Last Updated by: Judit Ley MD 30 weeks / late PNC/ previous 2 C sections / refused BTL/labs done 07/25/2025 RPR reactive at 1:1 titre and Treponemal Ab positive / repeat Titres in 4 weeks on Aug 25 2025 / B positive / Rubella NI /Hba1c is 5.0/ Patient needs Bicillin weekly x 3 and will start this Tuesday her last baby had syphilis and her partner just started treatment. Patient to avoid intercourse with partner HIV /HepC negative GC and Ct negative NIPT negative / late for [facility]SAFP Visit Date: 07/23/25 Last Updated by: Judit Ley MD 35 years at 27.6 weeks and late care / previous c sections x 2 / late for MSAFP / Plan anatomy scan / refused vaccines for flu and Tdap / not sure she wants to deliver here or in [place] / dating by a 24 week US done 06/26/2025 in ED ordered Ob panel 1 hour GTT/ TSH and CMP and GC and CT and NIPT and Carrier screening / refused BTL Office Procedures OBC Clinic LOC & Office Proc's Nursing/Assessment Patient Status: Established Patient OB Clinic Nursing Assessment: Medication Reconciliation, Update PMH in EMR and Vital Signs OB Clinic Coordination of Care: Consent,records obtained, informed consent, Education Simp Pt/Fam, Lab and Imaging orders, Results/Orders obtained and Staff clarify orders Special Needs: Heart tones Established Patient Charge Established Patient Point Assignment: 110 Established Patient Point Charge: EP Level 3 (80-115) Assessment & Plan Diagnosis / Problem List (1) Encounter for supervision of high risk in third trimester, antepartum: Status: Acute (2) Syphilis affecting in third trimester: Status: Acute (3) Late care: Status: Acute (4) Previous section: Status: Acute Additional Plan 35 at 31.6 weeks / late PNC / previous c section x 2 / refused BTL / refused vaccines / RPR reactive /was to be treated Bicillin x 3 injections / but Bicillin is not available anywhere / I am going to try and call at [facility] for 3 treatment doses and she can get them administered here weekly doses / Plan NST biweekly as the is high risk .XX on NIPT / results reviewed with her on 08/07/2025
== END 2025-08-20 14:27 | disposition home or self-care (01) ==
LOC: HODSOBC 13:11
PROVIDERS: Supervising Provider Obstetrics & Gynecology; Visit Provider Obstetrics & Gynecology
DX: O09.293 Supervision of pregnancy with other poor reproductive or obstetric history, third trimester (principal); O34.219 Maternal care for unspecified type scar from previous cesarean delivery; O09.33 Supervision of pregnancy with insufficient antenatal care, third trimester; O09.893 Supervision of other high risk pregnancies, third trimester; O98.113 Syphilis complicating pregnancy, third trimester; Z3A.31 31 weeks gestation of pregnancy; Z28.21 Immunization not carried out because of patient refusal
CPT/HCPCS: 99213; G0463